=== PATIENT | female | born 1960 | race Caucasian/White ===

== ENCOUNTER 2019-12-17 13:04 | Outpatient (CLI) | payer MEDICARE, MEDICAID, SELFPAY ==
[2019-12-17 13:21] LABS: Basophils Percent Auto 0.4 % (0.2-1.2); Eosinophils Absolute Auto 0.1 K/mm3 (0-0.3); Hematocrit 48.9 % (37.0-47.0); Hemoglobin 16.1 g/dL (12.0-15.0); Immature Granulocyte Absolute 0.01 K/mm3 (0.00-0.031); Immature Granulocyte Percent A 0.2 % (0-0.5); Lymphocytes Absolute Auto 0.53 K/mm3 (0.9-3.2); Lymphocytes Percent Auto 9.4 % (18.3-44.2); Mean Corpuscular HGB Conc 32.9 g/dl (32-36); Mean Corpuscular Hemoglobin 32.7 pg (26-34); Mean Corpuscular Volume 99.4 fl (80-100); Monocytes Absolute Auto 0.4 K/mm3 (0.1-0.6); Monocytes Percent Auto 7.1 % (2.6-8.5); Neutrophils Absolute Auto 4.6 K/mm3 (1.3-6.7); Neutrophils Percent Auto 80.9 % (45.5-73.1); Platelet Count Result 195 k/mm3 (150-375); Red Blood Count 4.92 M/mm3 (4.2-5.4); Red Cell Distribution Width 13.4 % (11.5-14.5); White Blood Count 5.6 K/mm3 (4.5-10.0)
[2019-12-17 13:25] LABS: Blood Urea Nitrogen 16 mg/dL (8-26); Carbon Dioxide 29 mmol/L (22-30); Chloride 105 mmol/L (98-109); Estimated Glomerular Filt Rate > 60; Glucose 91 mg/dL (70-105); Potassium 4.2 mmol/L (3.5-4.9); Sodium 140 mmol/L (138-146)
[2019-12-17 16:46] LABS: Alanine Aminotransferase 15 U/L (4-35); Alkaline Phosphatase 100 U/L (38-126); Aspartate Amino Transferase 23 U/L (14-36); Bilirubin,Total 0.4 mg/dL (0.2-1.3); Blood Urea Nitrogen 16 mg/dL (7-17); Calcium 9.2 mg/dL (8.4-10.2); Carbon Dioxide 26 mmol/L (22-30); Chloride 105 mmol/L (98-107); Cholesterol 183 mg/dL (0-200); Estimated Glomerular Filt Rate > 60; Glucose 92 mg/dL (65-105); HDL Direct 61 mg/dL; Potassium 4.3 mmol/L (3.4-5.0); Sodium 138 mmol/L (137-145); Triglycerides 104 mg/dL (<150)
[2019-12-17 16:58] LABS: LDL Cholesterol Direct 101 mg/dL
[2019-12-17 17:02] LABS: Free T4 Free Thyroxine 0.79 ng/mL (0.78-2.19)
[2019-12-17 17:17] LABS: Total Triiodothyronine (T3) 1.25 NG/ML (0.97-1.69)
== END 2019-12-17 13:05 | disposition home or self-care (01) ==
LOC: ANHLAB 13:09
PROVIDERS: PCP Nurse Practitioner; Referring Provider Family Medicine; Visit Provider Internal Medicine Hematology & Oncology
DX: C21.0 Malignant neoplasm of anus, unspecified (principal); E03.9 Hypothyroidism, unspecified
CPT/HCPCS: 36415; 80048; 80053; 80061; 84439; 84443; 84480; 85025

== ENCOUNTER 2020-04-13 15:10 | Emergency (ER) | payer MEDICARE, MEDICAID, SELFPAY ==
[2020-04-13] VITALS (18 sets, daily range): BP systolic 95–134; BP diastolic 58–86; PULSE 60–86; RESP 13–21; TEMP 36.7; O2SAT 97–100
--- NOTE | ~2020-04-13 | CT_ITS ---
EXAMINATION: CT abdomen pelvis w con DATE: 04/13/2020 17:01 INDICATION: Rectal bleeding. History of anal cancer. TECHNIQUE: Computed tomography (CT) of the abdomen and pelvis was performed with 100 cc Omnipaque 350 intravenous contrast. The dose-length product was 228.72 mGy-cm. Automated exposure control and iter ative reconstruction technique were employed. COMPARISON: CT dated 08/13/2019 FINDINGS: Lung bases are unremarkable. No significant pleural or pericardial effusion. Heart size is normal. There are at least 6 hemangiomas in the liver. No new liver masses are identified. The spleen , pancreas, adrenal glands and left kidney are unremarkable. There is a 2.4 cm left renal mass that a ppears slightly larger than on prior examination, suspicious for enlargement of renal cell carcinoma. Gallbladder is present. Large calcified uterine fibroid. There is thickening of the rectum/anus. No obstruction. No free air or free fluid. No sclerotic or lytic lesions are seen. IMPRESSION: 1. Thickening of the rectum/anus, suspicious for residual/recurrent malignancy. 2: Enlarging solid 2.4 cm left renal mass, suspicious for renal cell carcinoma until proven otherwise . Reviewed, dictated and finalized at location A. IMPRESSION: 1. Thickening of the rectum/anus, suspicious for residual/recurrent malignancy. 2: Enlarging solid 2.4 cm left renal mass, suspicious for renal cell carcinoma until proven otherwise.
[2020-04-13 16:15] LABS: Basophils Percent Auto 0.2 % (0.2-1.2); Eosinophils Absolute Auto 0.1 K/mm3 (0-0.3); Eosinophils Percent Auto 1.4 % (0-4.4); Hematocrit 40.9 % (37.0-47.0); Immature Granulocyte Absolute 0.01 K/mm3 (0.00-0.031); Immature Granulocyte Percent A 0.2 % (0-0.5); Lymphocytes Absolute Auto 0.59 K/mm3 (0.9-3.2); Lymphocytes Percent Auto 13.5 % (18.3-44.2); Mean Corpuscular HGB Conc 34.2 g/dl (32-36); Mean Corpuscular Hemoglobin 32.9 pg (26-34); Mean Corpuscular Volume 96.2 fl (80-100); Mean Platelet Volume 8.4 fl (7.4-10.4); Monocytes Absolute Auto 0.3 K/mm3 (0.1-0.6); Monocytes Percent Auto 7.8 % (2.6-8.5); Neutrophils Absolute Auto 3.4 K/mm3 (1.3-6.7); Neutrophils Percent Auto 76.9 % (45.5-73.1); Platelet Count Result 192 k/mm3 (150-375); Red Blood Count 4.25 M/mm3 (4.2-5.4); Red Cell Distribution Width 13.8 % (11.5-14.5); White Blood Count 4.4 K/mm3 (4.5-10.0)
--- NOTE | 2020-04-13 16:17 | ED.GIBLEED ---
HPI - GI Bleed General Chief complaint: GI Bleed Stated complaint: rectal bleeding Time Seen by Provider: 04/13/20 16:09 History of Present Illness HPI Narrative: Patient presents with a very good friend for rectal bleeding today. Last year she had anal cancer had a surgical resection, and then chemotherapy and radiation therapy. She is finished with all these therapies. According to Dr. Allen's note, she is due for an anoscopy, but she was not aware of that. She has abdominal pain mid right abdomen, 7 out of 10. She has discomfort in the anal area but not a pain with a number. She sometimes has difficulty passing her stool. The blood she seen today is in her diaper. She said her anus is still healing. She has not had nausea or vomiting. She makes good urine, but her appetite is poor and she sometimes does not eat. She smokes cigarettes, but does not drink alcohol. He said she would not be able to stay overnight because [place] in [place] bad area and people will break into her house. Onset (ago): hour(s) Pain Consistency: constant Severity: moderate Relieving factors: none Exacerbating factors: bowel movement Associated symptoms: abdominal pain Related Data Home Medications Medication Instructions Recorded Confirmed gabapentin 800 mg tablet 800 mg PO DAILY 09/17/19 albuterol sulfate 90 inh INHALATION Q4-6H PRN 04/13/20 aspirin 81 mg PO DAILY 04/13/20 levothyroxine [Euthyrox] 75 mcg PO QAM 04/13/20 pramipexole [Mirapex] 0.125 mg PO QPM 04/13/20 Allergies Allergy/AdvReac Type Severity Reaction Status Date / Time codeine Allergy Unknown Depression Verified 09/19/19 10:48 poison allyson extract Allergy Unknown RASH Verified 09/19/19 10:48 SWELLING BEES Allergy Unknown SWELLING, Uncoded 09/19/19 10:48 PASS OUT Review of Systems Review of Systems: Narrative: CONSTITUTIONAL: Denies fever, chills, or sweats. EYES: Denies visual changes, redness, or discharge. ENT: Denies rhinorrhea, congestion, sore throat, or otalgia. CARDIOVASCULAR: Denies chest pain, palpitations, or edema. RESPIRATORY: She has occasional cough, but not dyspnea. GASTROINTESTINAL: She has abdominal pain, but not nausea, vomiting, or diarrhea. GENITOURINARY: Denies dysuria or hematuria. SKIN: Denies rash or itching. MUSCULOSKELETAL: Denies back pain, joint pain, or myalgia. NEUROLOGIC: Denies headache, numbness, or weakness. All systems reviewed & are unremarkable except as noted in HPI and below PMFSH Past Medical History Medical History Anal squamous cell carcinoma Asthma COPD (chronic obstructive pulmonary disease) Surgical History Surgical History History of appendectomy 1969 History of umbilical hernia repair with mesh in 1989 Social History Social History Smoking status: Current every day smoker Second hand tobacco smoke exposure: Yes Alcohol intake: never Exam Narrative: Exam Narrative: GENERAL: Well-appearing, well-nourished, and in no acute distress. Short hair, tanned skin. HEAD: Normocephalic, atraumatic. EYES: PERRLA and EOMI. ENT: Nares clear, no rhinorrhea or epistaxis. Mucous membranes moist. NECK: Supple. CHEST: Rhonchi on the left lung that clears after deep breathes. no respiratory distress. HEART: Regular rate and rhythm. No murmur heard. Normal peripheral pulses. ABDOMEN: Soft, nontender, nondistended, normal active bowel sounds. EXTREMITIES: Normal range of motion. No edema. SKIN: Warm, dry, no rash. NEURO: No focal deficits. Alert and oriented x3. PSYCH: Normal mood and affect. Course Consultations Consultation #1: Call Dr. Garsia for hospitalist admission, and he said talk to Dr. Park first. Time: 19:23 Consultation #2: Call Dr. Park is the partner for Dr. Allen, and he said they do not have a colorectal surgeon here that she needs to be
[2020-04-13 16:24] LABS: Prothrombin Time 12.9 Seconds (11.1-14.7)
[2020-04-13 16:25] LABS: Partial Thromboplastin Time 25.6 SECONDS (22.3-36.8)
[2020-04-13] MEDS: SODIUM CHLORIDE 0.9% IV 1,000 ML 999 ML IV CONT (16:25)
[2020-04-13 16:27] LABS: Alanine Aminotransferase 18 U/L (4-35); Albumin Level 3.9 g/dL (3.5-5.1); Alkaline Phosphatase 89 U/L (38-126); Aspartate Amino Transferase 32 U/L (14-36); Bilirubin,Total 0.3 mg/dL (0.2-1.3); Blood Urea Nitrogen 19 mg/dL (7-17); Calcium 8.9 mg/dL (8.4-10.2); Carbon Dioxide 25 mmol/L (22-30); Chloride 107 mmol/L (98-107); Estimated CRCL calculation 62 ml/min; Estimated Glomerular Filt Rate > 60; Glucose 97 mg/dL (65-105); Potassium 3.7 mmol/L (3.4-5.0); Sodium 139 mmol/L (137-145)
== END 2020-04-13 19:34 | disposition home or self-care (01) ==
PROVIDERS: Emergency Provider Emergency Medicine; PCP Nurse Practitioner
DX: K62.5 Hemorrhage of anus and rectum (principal); C20 Malignant neoplasm of rectum; N28.89 Other specified disorders of kidney and ureter; J44.9 Chronic obstructive pulmonary disease, unspecified; Z92.21 Personal history of antineoplastic chemotherapy; Z92.3 Personal history of irradiation; F17.210 Nicotine dependence, cigarettes, uncomplicated
CPT/HCPCS: 36415; 74177; 80053; 85025; 85610; 85730; 86850; 86900; 86901; 96360; 99284; J7030; Q9967

== ENCOUNTER 2020-04-16 10:03 | Outpatient (CLI) | payer MEDICARE, MEDICAID, SELFPAY ==
[2020-04-16 10:24] LABS: Basophils Percent Auto 0.2 % (0.2-1.2); Eosinophils Absolute Auto 0.1 K/mm3 (0-0.3); Eosinophils Percent Auto 2.3 % (0-4.4); Hematocrit 44.1 % (37.0-47.0); Hemoglobin 14.7 g/dL (12.0-15.0); Immature Granulocyte Absolute 0.02 K/mm3 (0.00-0.031); Immature Granulocyte Percent A 0.3 % (0-0.5); Lymphocytes Absolute Auto 0.67 K/mm3 (0.9-3.2); Lymphocytes Percent Auto 11.1 % (18.3-44.2); Mean Corpuscular HGB Conc 33.3 g/dl (32-36); Mean Corpuscular Hemoglobin 32.5 pg (26-34); Mean Corpuscular Volume 97.6 fl (80-100); Mean Platelet Volume 8.2 fl (7.4-10.4); Monocytes Absolute Auto 0.6 K/mm3 (0.1-0.6); Monocytes Percent Auto 9.2 % (2.6-8.5); Neutrophils Absolute Auto 4.7 K/mm3 (1.3-6.7); Neutrophils Percent Auto 76.9 % (45.5-73.1); Platelet Count Result 212 k/mm3 (150-375); Red Blood Count 4.52 M/mm3 (4.2-5.4); Red Cell Distribution Width 13.7 % (11.5-14.5); White Blood Count 6.1 K/mm3 (4.5-10.0)
[2020-04-16 12:29] LABS: Alanine Aminotransferase 17 U/L (4-35); Albumin Level 3.8 g/dL (3.5-5.1); Alkaline Phosphatase 98 U/L (38-126); Aspartate Amino Transferase 24 U/L (14-36); Bilirubin,Total 0.4 mg/dL (0.2-1.3); Blood Urea Nitrogen 15 mg/dL (7-17); Carbon Dioxide 27 mmol/L (22-30); Chloride 107 mmol/L (98-107); Estimated Glomerular Filt Rate > 60; Glucose 94 mg/dL (65-105); Potassium 3.9 mmol/L (3.4-5.0); Sodium 139 mmol/L (137-145)
== END 2020-04-16 10:04 | disposition home or self-care (01) ==
PROVIDERS: PCP Nurse Practitioner; Visit Provider Internal Medicine Hematology & Oncology
DX: C21.0 Malignant neoplasm of anus, unspecified (principal)
CPT/HCPCS: 36415; 80053; 85025

== ENCOUNTER 2020-04-27 10:31 | Outpatient (CLI) | payer MEDICARE, MEDICAID, SELFPAY ==
--- NOTE | ~2020-04-27 | PE_ITS ---
EXAMINATION: PET skull to mid thigh DATE: 04/27/2020 13:22 INDICATION: Malignant neoplasm of the anus TECHNIQUE: Blood glucose level was 100 mg/dL. 10.054 mCi of 18-fluorodeoxyglucose (18-FDG) was admini stered i.v. Low dose computed tomography (CT) images were acquired from the base of the brain to the proximal thighs for attenuation correction and anatomic localization. Positron emission tomography (P ET) images were acquired in the same distribution beginning 73 minutes after injection. The dose-vladimir th product (DLP) was 236.72 mGy-cm. COMPARISON: 11/05/2018, 04/13/2020 FINDINGS: Head/neck: FDG uptake is again seen in the thyroid without suspicious CT correlate. Otherwise, no marlen picious FDG uptake is identified. Chest: There is mild emphysema. The lungs are free of acute opacities. There is no pleural effusion o r pneumothorax. No pathologically enlarged thoracic lymph nodes are identified. The heart size is nor mal. No abnormal FDG uptake is identified. Abdomen/pelvis/proximal thighs: There is apparent asymmetric wall thickening of the rectum to the lef t of midline which extends to the anus demonstrates an SUV max of 20.1. No pathologically enlarged ab dominal or pelvic lymph nodes are identified. The liver, spleen, pancreas, gallbladder, and adrenal g lands are normal. The left kidney is unremarkable. Again noted is a 2.1 cm right kidney mass with alva ging features on multiple comparison CTs consistent with renal cell carcinoma. There is calcified ath erosclerosis of the aorta and many of the other arteries. There is no free intraperitoneal gas or tiarra dence of bowel obstruction. Calcified fibroid is noted in the ureters. Musculoskeletal: No abnormal FDG uptake is identified. IMPRESSION: 1. Apparent wall thickening of the rectum and anus with associated FDG uptake concerning for malignan cy. Although physiologic uptake in the bowel is often present, the degree of FDG uptake exceeds what would be expected and what is seen in the remainder of the bowel for this patient. Recommend direct v isualization. 2. Persistent uptake in the thyroid without suspicious CT correlate, possibly thyroiditis. 3. Right kidney mass, consistent with renal cell carcinoma Reviewed, dictated and finalized at location A. IMPRESSION: 1. Apparent wall thickening of the rectum and anus with associated FDG uptake c oncerning for malignancy. Although physiologic uptake in the bowel is often pre sent, the degree of FDG uptake exceeds what would be expected and what is seen in the remainder of the bowel for this patient. Recommend direct visualization. 2. Persistent uptake in the thyroid without suspicious CT correlate, possibly t hyroiditis. 3. Right kidney mass, consistent with renal cell carcinoma
[2020-04-27 11:03] LABS: Glucose Point of Care 100 (65-105)
== END 2020-04-27 10:32 | disposition home or self-care (01) ==
LOC: ANHIMG 10:39
PROVIDERS: PCP Nurse Practitioner; Visit Provider Internal Medicine Hematology & Oncology
DX: C21.1 Malignant neoplasm of anal canal (principal)
CPT/HCPCS: 78815; A9552

== ENCOUNTER 2020-06-22 13:46 | Outpatient (CLI) | payer MEDICARE, MEDICAID, SELFPAY ==
[2020-06-22 14:06] LABS: Basophils Percent Auto 0.4 % (0.2-1.2); Eosinophils Absolute Auto 0.1 K/mm3 (0-0.3); Eosinophils Percent Auto 0.7 % (0-4.4); Hematocrit 46.7 % (37.0-47.0); Hemoglobin 15.4 g/dL (12.0-15.0); Immature Granulocyte Absolute 0.02 K/mm3 (0.00-0.031); Immature Granulocyte Percent A 0.3 % (0-0.5); Lymphocytes Percent Auto 7.9 % (18.3-44.2); Mean Corpuscular Volume 97.1 fl (80-100); Monocytes Absolute Auto 0.4 K/mm3 (0.1-0.6); Monocytes Percent Auto 5.2 % (2.6-8.5); Neutrophils Absolute Auto 6.5 K/mm3 (1.3-6.7); Neutrophils Percent Auto 85.5 % (45.5-73.1); Platelet Count Result 228 k/mm3 (150-375); Red Blood Count 4.81 M/mm3 (4.2-5.4); Red Cell Distribution Width 13.2 % (11.5-14.5); White Blood Count 7.6 K/mm3 (4.5-10.0)
[2020-06-22 14:10] LABS: Blood Urea Nitrogen 12 mg/dL (8-26); Carbon Dioxide 25 mmol/L (22-30); Chloride 104 mmol/L (98-109); Estimated Glomerular Filt Rate > 60; Glucose 106 mg/dL (70-105); Potassium 3.9 mmol/L (3.5-4.9); Sodium 141 mmol/L (138-146)
[2020-06-22 16:47] LABS: Alanine Aminotransferase 16 U/L (4-35); Albumin Level 4.1 g/dL (3.5-5.1); Alkaline Phosphatase 117 U/L (38-126); Anion Gap 8 mmol/L (8-16); Aspartate Amino Transferase 27 U/L (14-36); Bilirubin,Total 0.5 mg/dL (0.2-1.3); Blood Urea Nitrogen 13 mg/dL (7-17); Calcium 9.3 mg/dL (8.4-10.2); Carbon Dioxide 26 mmol/L (22-30); Chloride 104 mmol/L (98-107); Estimated Glomerular Filt Rate > 60; Glucose 110 mg/dL (65-105); Sodium 138 mmol/L (137-145)
== END 2020-06-22 13:47 | disposition home or self-care (01) ==
LOC: ANHLAB 13:49
PROVIDERS: PCP Nurse Practitioner; Visit Provider Internal Medicine Hematology & Oncology
DX: C21.0 Malignant neoplasm of anus, unspecified (principal)
CPT/HCPCS: 36415; 80048; 80053; 85025

== ENCOUNTER 2020-08-20 09:14 | Outpatient (CLI) | payer MEDICARE, MEDICAID, SELFPAY ==
--- NOTE | ~2020-08-20 | CT_ITS ---
EXAMINATION: CT abdomen pelvis w con DATE: 08/20/2020 09:51 INDICATION: Abdominal infection. TECHNIQUE: Computed tomography (CT) of the abdomen and pelvis was performed with 100 mL Omnipaque 350 intravenous contrast. Automated exposure control and iterative reconstruction technique were employe d. The dose-length product was 177.63 mGy-cm. COMPARISON: CT abdomen and pelvis 04/13/2020, 10/24/18, PET/CT 04/27/20, 11/05/18 FINDINGS: The visualized portions of the lung bases demonstrate minimal atelectasis on the left. No p leural effusion. The heart size is normal. No pericardial effusion. There are multiple masses in the liver measuring up to 2.4 cm without change from 10/24/2018 and without increased activity on prior PE T, likely benign. Some of the masses demonstrate peripheral nodular hyperenhancement, consistent with hemangiomas. The gallbladder, spleen, pancreas, and adrenal glands are normal. There is cortical thi nning of the kidneys. There is a 1.9 cm enhancing mass at the medial aspect of the right kidney. Ther e is a left internal ureteral stent in expected position. The bladder is decompressed by a Breaux cath eter. There are calcified fibroids in the uterus. There are no dilated loops of bowel. There is an en d colostomy in left abdomen. There are no pathologically enlarged lymph nodes. The ovarian veins and periuterine veins are enlarged, consistent with pelvic venous insufficiency. There is fluid and gas i n the perirectal and perianal region in the area of prior surgery. The fluid component measures up to 6.6 x 2.0 x 1.5 cm in the perianal region. The fluid is contiguous with the skin in the perianal reg ion. There is mild lumbar spondylosis. IMPRESSION: 1. Fluid and gas in the perirectal and perianal region in the area of prior surgery with largest flui d component measuring 6.6 x 2.0 x 1.5 cm with skin communication. 2. Stable 1.9 cm enhancing right kidney mass, consistent with renal cell carcinoma. Reviewed, dictated and finalized at location A. [employer] IMPRESSION: 1. Fluid and gas in the perirectal and perianal region in the area of prior brando moriah with largest fluid component measuring 6.6 x 2.0 x 1.5 cm with skin commun ication. 2. Stable 1.9 cm enhancing right kidney mass, consistent with renal cell carcin mel.
== END 2020-08-20 09:15 | disposition home or self-care (01) ==
LOC: ANHIMG 09:24
PROVIDERS: PCP Nurse Practitioner
DX: K65.9 Peritonitis, unspecified (principal)
CPT/HCPCS: 74177; Q9967

== ENCOUNTER 2020-09-06 13:00 | Outpatient (CLI) | payer MEDICARE, MEDICAID, SELFPAY ==
[2020-09-06 13:17] LABS: Hematocrit 42.8 % (37.0-47.0); Hemoglobin 13.7 g/dL (12.0-15.0); Mean Corpuscular Hemoglobin 31.2 pg (26-34); Mean Corpuscular Volume 97.5 fl (80-100); Mean Platelet Volume 8.2 fl (7.4-10.4); Platelet Count Result 223 k/mm3 (150-375); Red Blood Count 4.39 M/mm3 (4.2-5.4); Red Cell Distribution Width 17.3 % (11.5-14.5); White Blood Count 4.4 K/mm3 (4.5-10.0)
[2020-09-06 13:22] LABS: Blood Urea Nitrogen 13 mg/dL (8-26); Carbon Dioxide 31 mmol/L (22-30); Chloride 102 mmol/L (98-109); Estimated Glomerular Filt Rate > 60; Glucose 115 mg/dL (70-105); Potassium 4.1 mmol/L (3.5-4.9); Sodium 138 mmol/L (138-146)
[2020-09-06 17:35] LABS: Alanine Aminotransferase 11 U/L (4-35); Albumin Level 3.7 g/dL (3.5-5.1); Alkaline Phosphatase 114 U/L (38-126); Anion Gap 6 mmol/L (8-16); Aspartate Amino Transferase 25 U/L (14-36); Bilirubin,Total 0.3 mg/dL (0.2-1.3); Blood Urea Nitrogen 14 mg/dL (7-17); Calcium 9.4 mg/dL (8.4-10.2); Carbon Dioxide 30 mmol/L (22-30); Chloride 103 mmol/L (98-107); Estimated Glomerular Filt Rate > 60; Glucose 122 mg/dL (65-105); Potassium 4.2 mmol/L (3.4-5.0); Sodium 139 mmol/L (137-145)
== END 2020-09-06 13:01 | disposition home or self-care (01) ==
LOC: ANHLAB 13:02
PROVIDERS: PCP Nurse Practitioner; Visit Provider Internal Medicine Hematology & Oncology
DX: C21.0 Malignant neoplasm of anus, unspecified (principal)
CPT/HCPCS: 36415; 80048; 80053; 85027

== ENCOUNTER 2020-10-30 14:16 | Emergency (ER) | payer MEDICARE, MEDICAID, SELFPAY ==
[2020-10-30 14:20] VITALS: BP 127/82; PULSE 77; RESP 16; TEMP 36.7; O2SAT 98
--- NOTE | 2020-10-30 15:26 | ED.GENADULT ---
HPI - General Adult General Chief complaint: Recheck/Abnormal Lab/Rx Stated complaint: PRESCRIPTION REFILL Time Seen by Provider: 10/30/20 14:20 Source: patient Mode of arrival: ambulatory Limitations: no limitations History of Present Illness HPI narrative: Patient is a 60-year-old female who presents with request of having her pain medication refilled has history of anal cancer currently managed by orthopedic surgery patient has pelvic pain associated with the cancer which is unchanged patient denies recent illness or other complaints and on arrival is in the room in no distress Related Data Home Medications Medication Instructions Recorded Confirmed gabapentin 800 mg tablet 800 mg PO DAILY 09/17/19 09/24/20 albuterol sulfate 90 inh INHALATION Q4-6H PRN 04/13/20 09/24/20 aspirin 81 mg PO DAILY 04/13/20 09/24/20 levothyroxine [Euthyrox] 75 mcg PO QAM 04/13/20 09/24/20 pramipexole [Mirapex] 0.125 mg PO QPM 04/13/20 09/24/20 Allergies Allergy/AdvReac Type Severity Reaction Status Date / Time codeine Allergy Unknown Depression Verified 09/24/20 14:00 poison allyson extract Allergy Unknown RASH Verified 09/24/20 14:00 SWELLING BEES Allergy Unknown SWELLING, Uncoded 09/24/20 14:00 PASS OUT Review of Systems Review of Systems: All systems reviewed & are unremarkable except as noted in HPI and below PMFSH Past Medical History Medical History (Updated 10/30/20 @ 15:32 by Uriel Castano PA-C) Anal squamous cell carcinoma Asthma COPD (chronic obstructive pulmonary disease) Surgical History Surgical History History of appendectomy 1970 History of umbilical hernia repair with mesh in 1989 Family History Family History Father Hypertension Mother Family history of malignant neoplasm Sibling Family history of diabetes mellitus in first degree relative Family history of heart disease in male family member before age 55 Other Diabetes mellitus Family history of allergic disorder Family history of arthritis Social History Social History Smoking status: Current every day smoker Second hand tobacco smoke exposure: Yes Alcohol intake: never Exam Narrative: Exam Narrative: GENERAL: Well-appearing, well-nourished, and in no acute distress. HEAD: Normocephalic, atraumatic. EYES: PERRLA and EOMI. ENT: Nares clear, no rhinorrhea or epistaxis. Mucous membranes moist. CHEST: Clear to auscultation. No respiratory distress. No wheezes rales or rhonchi HEART: Regular rate and rhythm. No murmur heard. EXTREMITIES: Normal range of motion. No edema. SKIN: Warm, dry, no rash. NEURO: No focal deficits. Alert and oriented x3. PSYCH: Normal mood and affect. Course Course Emergency Course: Patient will be given some pain medications and advised to follow with primary care and oncology no other concerning findings or complaints Vital Signs Vital signs: Vital Signs Temperature 98.1 F 10/30/20 14:20 Pulse Rate 77 10/30/20 14:20 Respiratory Rate 16 10/30/20 14:20 Blood Pressure 127/82 10/30/20 14:20 Pulse Oximetry 98 10/30/20 14:20 Temperature 98.1 F 10/30/20 14:20 Pulse Rate 77 10/30/20 14:20 Respiratory Rate 16 10/30/20 14:20 Blood Pressure 127/82 10/30/20 14:20 Pulse Oximetry 98 10/30/20 14:20 Medical Decision Making MDM Narrative Medical decision making narrative: Patient with pain related to her cancer will be given medication short course advised to follow with oncology on Sunday Vital Signs Vital Signs: Vital Signs Temperature 98.1 F 10/30/20 14:20 Pulse Rate 77 10/30/20 14:20 Respiratory Rate 16 10/30/20 14:20 Blood Pressure 127/82 10/30/20 14:20 Pulse Oximetry 98 10/30/20 14:20 Temperature 98.1 F 10/30/20 14:20 Pulse Rate 77 10/30/20 14:20 Respirator
== END 2020-10-30 15:42 | disposition home or self-care (01) ==
PROVIDERS: Emergency Provider Family Medicine; PCP Family Medicine
DX: C21.0 Malignant neoplasm of anus, unspecified (principal); J44.9 Chronic obstructive pulmonary disease, unspecified; Z79.82 Long term (current) use of aspirin; F17.200 Nicotine dependence, unspecified, uncomplicated
CPT/HCPCS: 99281

== ENCOUNTER 2020-12-08 13:05 | Outpatient (CLI) | payer MEDICARE, MEDICAID, SELFPAY ==
[2020-12-08 13:32] LABS: Basophils Percent Auto 0.5 % (0.2-1.2); Eosinophils Percent Auto 0.5 % (0-4.4); Hematocrit 46.4 % (37.0-47.0); Hemoglobin 15.8 g/dL (12.0-15.0); Immature Granulocyte Absolute 0.01 K/mm3 (0.00-0.031); Immature Granulocyte Percent A 0.2 % (0-0.5); Lymphocytes Absolute Auto 0.88 K/mm3 (0.9-3.2); Lymphocytes Percent Auto 21.6 % (18.3-44.2); Mean Corpuscular HGB Conc 34.1 g/dl (32-36); Mean Corpuscular Hemoglobin 32.8 pg (26-34); Mean Corpuscular Volume 96.5 fl (80-100); Mean Platelet Volume 8.6 fl (7.4-10.4); Monocytes Absolute Auto 0.4 K/mm3 (0.1-0.6); Monocytes Percent Auto 9.1 % (2.6-8.5); Neutrophils Absolute Auto 2.8 K/mm3 (1.3-6.7); Neutrophils Percent Auto 68.1 % (45.5-73.1); Platelet Count Result 124 k/mm3 (150-375); Red Blood Count 4.81 M/mm3 (4.2-5.4); Red Cell Distribution Width 14.7 % (11.5-14.5); White Blood Count 4.1 K/mm3 (4.5-10.0)
[2020-12-08 13:36] LABS: Blood Urea Nitrogen 15 mg/dL (8-26); Carbon Dioxide 25 mmol/L (22-30); Chloride 106 mmol/L (98-109); Estimated Glomerular Filt Rate > 60; Glucose 100 mg/dL (70-105); Potassium 3.8 mmol/L (3.5-4.9); Sodium 139 mmol/L (138-146)
[2020-12-08 16:04] LABS: Alanine Aminotransferase 19 U/L (4-35); Albumin Level 4.4 g/dL (3.5-5.1); Alkaline Phosphatase 85 U/L (38-126); Anion Gap 8 mmol/L (8-16); Aspartate Amino Transferase 26 U/L (14-36); Bilirubin,Total 0.4 mg/dL (0.2-1.3); Blood Urea Nitrogen 17 mg/dL (7-17); Calcium 9.8 mg/dL (8.4-10.2); Carbon Dioxide 23 mmol/L (22-30); Chloride 108 mmol/L (98-107); Estimated Glomerular Filt Rate > 60; Glucose 101 mg/dL (65-105); Potassium 4.1 mmol/L (3.4-5.0); Sodium 139 mmol/L (137-145)
== END 2020-12-08 13:06 | disposition home or self-care (01) ==
LOC: ANHLAB 13:07
PROVIDERS: PCP Family Medicine; Visit Provider Internal Medicine Hematology & Oncology
DX: C21.0 Malignant neoplasm of anus, unspecified (principal)
CPT/HCPCS: 36415; 80048; 80053; 85025

== ENCOUNTER 2020-12-29 08:50 | Outpatient (CLI) | payer MEDICARE, MEDICAID, SELFPAY ==
[2020-12-29 10:25] LABS: Free T4 Free Thyroxine 0.62 ng/mL (0.78-2.19)
[2020-12-29 10:37] LABS: Total Triiodothyronine (T3) 0.68 NG/ML (0.97-1.69)
== END 2020-12-29 08:51 | disposition home or self-care (01) ==
LOC: ANHLAB 08:52
PROVIDERS: Visit Provider Nurse Practitioner
DX: E03.9 Hypothyroidism, unspecified (principal)
CPT/HCPCS: 36415; 84439; 84443; 84480

== ENCOUNTER 2021-04-26 09:26 | Outpatient (CLI) | payer MEDICARE, MEDICAID, SELFPAY ==
--- NOTE | ~2021-04-26 | CT_ITS ---
EXAMINATION: CT abdomen pelvis w con DATE: 04/26/2021 10:02 INDICATION: Anal cancer TECHNIQUE: Computed tomography (CT) of the abdomen and pelvis was performed with 100 cc Omnipaque 350 intravenous contrast. Automated exposure control and iterative reconstruction technique were employe d. Exam dose: 182.84 mGy-cm total exam DLP. COMPARISON: 08/20/2020 CT abdomen pelvis 04/27/2020 PET/CT scan FINDINGS: The lung bases are clear of infiltrate or consolidation. Normal heart size. No pericardial or pleural effusion. There are multiple stable previously reported FDG negative up to approximately 2.4 cm hypoattenuating lesions of the liver, including some with peripheral pulling of contrast material, likely benign hep atic hemangiomas. The gallbladder is present. No bile duct or pancreatic duct dilatation or pancreatic mass lesion or c alcification. Normal splenic size. The adrenal glands appear unremarkable. Persistent approximately 2 cm right renal hypoenhancing mass, most consistent with hypernephroma. The kidneys are otherwise unremarkable. Normal caliber of the abdominal aorta. No aortocaval or periaortic or pelvic lymphadenopathy is appre ciated. No ascites. Multiple uterine calcifications including an approximately 4 cm calcified uterine fibroid. The urinar y bladder is unremarkable. Left and colostomy. No bowel obstruction is evident. No suspicious osteolytic or osteoblastic lesions are noted. IMPRESSION: Stable probable hepatic hemangiomas 2 cm right renal hypoenhancing mass, most suggestive of hypernephroma Left colostomy; resolution of air-fluid collections in the perianal and perirectal region since 08/20 Reviewed, dictated and finalized at [facility]. Reviewed, dictated and finalized at location A. IMPRESSION: Stable probable hepatic hemangiomas 2 cm right renal hypoenhancing mass, most suggestive of hypernephroma Left colostomy; resolution of air-fluid collections in the perianal and perirec sly region since 08/20/2020
[2021-04-26 09:53] LABS: Estimated Glomerular Filt Rate > 60
== END 2021-04-26 09:27 | disposition home or self-care (01) ==
LOC: ANHIMG 09:32
PROVIDERS: PCP Family Medicine; Visit Provider Internal Medicine Hematology & Oncology
DX: C21.0 Malignant neoplasm of anus, unspecified (principal)
CPT/HCPCS: 74177; Q9967

== ENCOUNTER 2021-05-03 15:49 | Outpatient (CLI) | payer MEDICARE, MEDICAID, SELFPAY ==
[2021-05-03 16:50] LABS: Free T4 Free Thyroxine 1.01 ng/mL (0.78-2.19)
[2021-05-03 17:09] LABS: Total Triiodothyronine (T3) 0.98 NG/ML (0.97-1.69)
== END 2021-05-03 15:50 | disposition home or self-care (01) ==
PROVIDERS: PCP Family Medicine; Visit Provider Family Medicine
DX: E03.9 Hypothyroidism, unspecified (principal)
CPT/HCPCS: 36415; 84439; 84443; 84480

== ENCOUNTER 2021-07-19 13:31 | Outpatient (CLI) | payer OTHER, SELFPAY ==
--- NOTE | ~2021-07-19 | CT_ITS ---
EXAMINATION: CT abdomen pelvis w con DATE: 07/19/2021 14:32 INDICATION: Anal cancer. TECHNIQUE: Computed tomography (CT) of the abdomen and pelvis was performed with 100 mL Omnipaque 350 intravenous contrast. Automated exposure control and iterative reconstruction technique were employe d. The dose-length product was 176.87 mGy-cm. COMPARISON: CT abdomen and pelvis 04/26/2021, 10/24/18, PET/CT 11/05/18 FINDINGS: The visualized portions of the lung bases demonstrate minimal atelectasis. No pleural effus ion. The heart size is normal. No pericardial effusion. There are 6 chronic masses in the liver witho ut increased activity on prior PET, likely benign. Some have interrupted peripheral puddling of contr ast, consistent with hemangiomas. The gallbladder, spleen, pancreas, and adrenal glands are normal. T here is cortical thinning of the kidneys. There is a 1 mm stone in right kidney. There is a 1.8 cm hy poenhancing mass in right kidney. There is a 1.5 cm enhancing mass in left kidney. There is a calcifi ed fibroid in the uterus. There are no dilated loops of bowel. There is an end colostomy in left abdo men. There are no pathologically enlarged lymph nodes. There is no free intraperitoneal fluid. There is mild lumbar spondylosis. IMPRESSION: 1. Stable bilateral enhancing kidney masses suspicious for renal cell carcinoma. Reviewed, dictated and finalized at location A. IMPRESSION: 1. Stable bilateral enhancing kidney masses suspicious for renal cell carcinoma .
[2021-07-19 14:14] LABS: Estimated Glomerular Filt Rate > 60
== END 2021-07-19 13:32 | disposition home or self-care (01) ==
LOC: ANHIMG 13:37
PROVIDERS: PCP Family Medicine; Visit Provider Internal Medicine Hematology & Oncology
DX: C21.0 Malignant neoplasm of anus, unspecified (principal); N20.0 Calculus of kidney; N28.89 Other specified disorders of kidney and ureter; M47.816 Spondylosis without myelopathy or radiculopathy, lumbar region
CPT/HCPCS: 74177; Q9967

== ENCOUNTER 2021-09-23 16:49 | Emergency (ER) | payer OTHER, SELFPAY ==
[2021-09-23 17:02] VITALS: BP 114/64; PULSE 97; RESP 16; TEMP 36.2; O2SAT 97
[2021-09-23 19:00] VITALS: BP 109/69; PULSE 110; RESP 14; O2SAT 100
--- NOTE | 2021-09-23 22:03 | PC.NURSE ---
1st call no answer
--- NOTE | 2021-09-23 22:24 | PC.NURSE ---
called 3x no answer
== END 2021-09-24 05:26 | disposition left against medical advice (07) ==
PROVIDERS: PCP Family Medicine
DX: N93.9 Abnormal uterine and vaginal bleeding, unspecified (principal)
CPT/HCPCS: 99199

== ENCOUNTER 2021-09-24 10:39 | Emergency (ER) | payer OTHER, SELFPAY ==
--- NOTE | ~2021-09-24 | CT_ITS ---
EXAMINATION: CT abdomen pelvis w con DATE: 09/24/2021 16:28 INDICATION: Vaginal bleeding TECHNIQUE: Computed tomography (CT) of the abdomen and pelvis was performed with 100 cc Omnipaque 350 intravenous contrast. The dose-length product was 202.46 mGy-cm. Automated exposure control and iter ative reconstruction technique were employed. COMPARISON: CT dated 07/19/2021. FINDINGS: Lung bases are unremarkable. Heart size normal. There is atherosclerosis of the aorta witho ut evidence for for aneurysm. There are several low-density lesions in the liver. There is subtle per ipheral nodular enhancement of the liver lesions. These are most likely hemangiomas. Gallbladder is p resent. The spleen, pancreas, adrenal glands and kidneys are unremarkable. Gallbladder is present. Th ere is a jejunostomy tube. Nonobstructive bowel gas pattern. There is a 2.1 x 1.8 x 1.3 cm enhancing right renal mass, consistent with renal cell carcinoma. There are prominent parametrial vessels, most likely pelvic congestion syndrome. Densely calcified uterine fibroids. No free air or free fluid. Th ere is levoscoliosis of the lumbar spine. No acute osseous abnormality no evidence for aortic aneurys m. No lymphadenopathy. IMPRESSION: 1. Stable 2.1 cm enhancing right renal mass, consistent with renal cell carcinoma. 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 Reviewed, dictated and finalized at location A. [employer] IMPRESSION: 1. Stable 2.1 cm enhancing right renal mass, consistent with renal cell carcino ma. 2: Multiple peripherally enhancing liver masses, most likely cavernous hemangi omas.
[2021-09-24 11:30] VITALS: BP 106/33; PULSE 114; RESP 17; TEMP 36.6; O2SAT 99
--- NOTE | 2021-09-24 14:59 | ED.GENADULT ---
HPI - General Adult General Chief complaint: Vaginal Bleeding Stated complaint: Vaginal Bleeding Time Seen by Provider: 09/24/21 14:38 History of Present Illness HPI narrative: 61-year-old female with history of colon cancer presents to the emergency department for evaluation of 1 week of lower abdominal pain and 2 days of vaginal bleeding and discharge. Patient did have colon cancer 2 years ago with chemotherapy/radiation and has had a colostomy bag for the past 2 years. Patient states that 1 week ago she began having some increased lower abdominal pain. Patient states 2 days ago she began having bloody and foul green discharge. Patient states she is not sexually active. Patient is postmenopausal. Patient did have tubal ligation but has not had an oophorectomy or hysterectomy. Related Data Home Medications Medication Instructions Recorded Confirmed gabapentin 800 mg tablet 800 mg PO DAILY 09/17/19 03/02/21 albuterol sulfate 90 inh INHALATION Q4-6H PRN 04/13/20 03/02/21 aspirin 81 mg PO DAILY 04/13/20 03/02/21 levothyroxine [Euthyrox] 75 mcg PO QAM 04/13/20 03/02/21 pramipexole [Mirapex] 0.125 mg PO QPM 04/13/20 03/02/21 cephalexin 500 mg PO Q8H 01/19/21 03/02/21 naloxone 4 mg INTRANASAL Q2-3M PRN 01/19/21 03/02/21 Allergies Allergy/AdvReac Type Severity Reaction Status Date / Time codeine Allergy Unknown Depression Verified 09/24/21 15:20 poison allyson extract Allergy Unknown RASH Verified 09/24/21 15:20 SWELLING BEES Allergy Unknown SWELLING, Uncoded 09/24/21 15:20 PASS OUT Review of Systems Review of Systems: CONSTITUTIONAL: Denies fever, chills, or sweats. EYES: Denies visual changes, redness, or discharge. ENT: Denies rhinorrhea, congestion, sore throat, or otalgia. CARDIOVASCULAR: Denies chest pain, palpitations, or edema. RESPIRATORY: Denies cough or dyspnea. GASTROINTESTINAL: Lower abdominal pain but denies any nausea vomiting or diarrhea GENITOURINARY: Denies any pain with urination but does have vaginal bleeding and vaginal discharge. SKIN: Denies rash or itching. MUSCULOSKELETAL: Denies back pain, joint pain, or myalgia. NEUROLOGIC: Denies headache, numbness, or weakness. PSYCHIATRIC: Denies anxiety or depression. [facility] Past Medical History Medical History (Updated 09/25/21 @ 00:00 by Kristi Morales) Anal squamous cell carcinoma Asthma COPD (chronic obstructive pulmonary disease) Surgical History Surgical History History of appendectomy 1970 History of umbilical hernia repair with mesh in 1989 Family History Family History Father Hypertension Mother Family history of malignant neoplasm Sibling Family history of diabetes mellitus in first degree relative Family history of heart disease in male family member before age 55 Other Diabetes mellitus Family history of allergic disorder Family history of arthritis Social History Social History Smoking packs per day: 1 Smoking cigarettes per day: 20.0 Smoking status: Current every day smoker Second hand tobacco smoke exposure: Yes Alcohol intake: never Gender identity (if verbalized by the patient): Female Spiritual care concerns: No Exam Narrative: APPEARANCE: Well appearing, no pain in distress, well-nourished. Head normocephalic atraumtaic. EYES: PERRLA/EOMI, conjunctivae very clear. NOSE: Normal no drainage EARS:TMS clear Marvin Vergara, with good light reflex. THROAT: Pharynx clear, no exudate. NECK: Supple. No adenopathy, no masses. RESPIRATORY: Airway patent, respirations nonlabored. Clear to auscultation bilaterally, no rales, rhonchi, wheezing. CARDIOVASCULAR: Regular rate and rhythm without murmurs rubs or gallops. ABDOMINAL: Soft, nondistended. Well-appearing colostomy. Some suprapubic tenderness to palpation MUSCULOSKELETAl: Moves all ext
[2021-09-24 15:15] VITALS: BP 113/70; PULSE 90; RESP 16; TEMP 36.8; O2SAT 99
[2021-09-24 15:47] LABS: Basophils Percent Auto 0.3 % (0.2-1.2); Eosinophils Percent Auto 0.3 % (0-4.4); Hematocrit 45.1 % (37.0-47.0); Hemoglobin 15.3 g/dL (12.0-15.0); Immature Granulocyte Absolute 0.02 K/mm3 (0.00-0.031); Immature Granulocyte Percent A 0.3 % (0-0.5); Lymphocytes Percent Auto 10.6 % (18.3-44.2); Mean Corpuscular HGB Conc 33.9 g/dl (32-36); Mean Corpuscular Volume 91.5 fl (80-100); Mean Platelet Volume 8.4 fl (7.4-10.4); Monocytes Absolute Auto 0.6 K/mm3 (0.1-0.6); Monocytes Percent Auto 7.8 % (2.6-8.5); Neutrophils Absolute Auto 6.1 K/mm3 (1.3-6.7); Neutrophils Percent Auto 80.7 % (45.5-73.1); Platelet Count Result 245 k/mm3 (150-375); Red Blood Count 4.93 M/mm3 (4.2-5.4); Red Cell Distribution Width 13.2 % (11.5-14.5); White Blood Count 7.6 K/mm3 (4.5-10.0)
[2021-09-24 15:59] LABS: Alanine Aminotransferase 29 U/L (4-35); Albumin Level 4.2 g/dL (3.5-5.1); Alkaline Phosphatase 234 U/L (38-126); Anion Gap 9 mmol/L (8-16); Aspartate Amino Transferase 34 U/L (14-36); Bilirubin,Total 0.4 mg/dL (0.2-1.3); Blood Urea Nitrogen 27 mg/dL (7-17); Calcium 9.7 mg/dL (8.4-10.2); Carbon Dioxide 25 mmol/L (22-30); Chloride 100 mmol/L (98-107); Estimated CRCL calculation 62 ml/min; Estimated Glomerular Filt Rate > 60; Glucose 90 mg/dL (65-110); Potassium 4.1 mmol/L (3.4-5.0); Sodium 134 mmol/L (137-145)
[2021-09-24 16:01] LABS: Prothrombin Time 12.7 Seconds (11.1-14.7)
--- NOTE | 2021-09-24 16:18 | PC.NURSE ---
Pt off floor to radiology.
[2021-09-24] MEDS: fentaNYL CITRATE INJ (*CRX) 100 MCG/2 ML VIAL 50 MCG IV PUSH (16:34)
[2021-09-24 18:36] LABS: Add Urine Microscopic? YES; Appearance Urine Clear (Clear); Bilirubin Urine Negative (Negative); Blood Urine 2+ (Negative); Color Urine Yellow (Yellow); Glucose Urine UA Negative (Negative); Ketones Urine 1+ mg/dL (Negative); Leukocyte Esterase Ur Trace LEU/UL (Negative); Mucus Urine Few /lpf; Nitrate Urine Negative (Negative); Protein Urine Negative (Negative); Squamous Epithelial Cell Urine Rare /hpf (Few); Urobilinogen Urine Negative mg/dL (<2.0)
[2021-09-24] MEDS: metroNIDAZOLE 250 MG TABLET 500 MG PO (19:30)
[2021-09-24 19:45] VITALS: BP 137/93; PULSE 91; RESP 16; O2SAT 100
== END 2021-09-24 19:50 | disposition home or self-care (01) ==
PROVIDERS: Emergency Provider Emergency Medicine; PCP Family Medicine
DX: N89.8 Other specified noninflammatory disorders of vagina (principal); J44.9 Chronic obstructive pulmonary disease, unspecified; F17.210 Nicotine dependence, cigarettes, uncomplicated; N28.89 Other specified disorders of kidney and ureter; R16.0 Hepatomegaly, not elsewhere classified; Z85.048 Personal history of other malignant neoplasm of rectum, rectosigmoid junction, and anus; Z93.3 Colostomy status; Z79.82 Long term (current) use of aspirin
CPT/HCPCS: 36415; 74177; 80053; 81001; 85025; 85610; 87070; 87491; 87591; 87808; 96374; 99284; A9270; J3010; Q9967

== ENCOUNTER 2022-05-10 12:43 | Emergency (ER) | payer MEDICARE, MEDICAID, SELFPAY ==
[2022-05-10] VITALS (9 sets, daily range): BP systolic 108–128; BP diastolic 75–88; PULSE 72–92; RESP 13–21; TEMP 36.5; O2SAT 96–100
--- NOTE | ~2022-05-10 | XR_ITS ---
EXAMINATION: XR chest 1V DATE: 05/10/2022 13:29 INDICATION: Slurred speech. Right arm numbness and weakness. TECHNIQUE: A single frontal view of the chest was obtained. COMPARISON: Chest 2 views 07/08/2014, CT abdomen and pelvis 09/24/2021 FINDINGS: There are airspace opacities in left lower lung zone. No pleural effusion or pneumothorax. The heart size is normal. There is a right internal jugular port with tip in superior vena cava. IMPRESSION: 1. Airspace opacities in left lower lung zone, consistent with atelectasis versus pneumonia. Reviewed, dictated and finalized at location A. IMPRESSION: 1. Airspace opacities in left lower lung zone, consistent with atelectasis vers us pneumonia.
--- NOTE | ~2022-05-10 | CT_ITS ---
EXAMINATION: CT brain wo con DATE: 05/10/2022 12:58 INDICATION: Cerebrovascular accident. Slurred speech. Right-sided numbness. TECHNIQUE: Computed tomography (CT) of the head was performed without intravenous contrast. The mA wa s adjusted according to patient size. Iterative reconstruction technique was employed. The dose-lengt h product was 605.33 mGy-cm. COMPARISON: None FINDINGS: There is no intracranial hemorrhage, acute infarction, or abnormal intracranial mass lesion . The ventricles are normal in size. The orbits are normal. There is mild mucosal thickening in the e thmoid sinuses. The mastoid air cells are normal. IMPRESSION: 1. Normal brain. I called this result to Dr. Ma. Reviewed, dictated and finalized at location A.
--- NOTE | 2022-05-10 12:51 | ECG_ITS ---
Measurements Intervals [place] Rate: 90 P: 82 MI: 142 QRS: 30 QRSD: 73 T: 65 QT: 330 QTc: 404 Interpretive Statements SINUS RHYTHM BASELINE ARTIFACT POSSIBLE RIGHT ATRIAL ENLARGEMENT BORDERLINE ECG COMPARED TO ECG 02/07/2019 14:12:30 NO SIGNIFICANT CHANGES Electronically Signed On 05-10-2022 13:10:20 CDT by Shilo Hartmann M.D.
[2022-05-10 12:52] LABS: Glucose Point of Care 135 mg/dl (65-105)
[2022-05-10 13:24] LABS: Basophils Percent Auto 0.4 % (0.2-1.2); Eosinophils Percent Auto 0.2 % (0-4.4); Hemoglobin 15.4 g/dL (12.0-15.0); Immature Granulocyte Absolute 0.03 K/mm3 (0.00-0.031); Immature Granulocyte Percent A 0.3 % (0-0.5); Lymphocytes Absolute Auto 0.94 K/mm3 (0.9-3.2); Lymphocytes Percent Auto 10.5 % (18.3-44.2); Mean Corpuscular HGB Conc 32.8 g/dl (32-36); Mean Corpuscular Hemoglobin 30.1 pg (26-34); Mean Platelet Volume 8.6 fl (7.4-10.4); Monocytes Absolute Auto 0.5 K/mm3 (0.1-0.6); Monocytes Percent Auto 5.6 % (2.6-8.5); Neutrophils Absolute Auto 7.4 K/mm3 (1.3-6.7); Platelet Count Result 124 k/mm3 (150-375); Red Blood Count 5.11 M/mm3 (4.2-5.4); Red Cell Distribution Width 15.8 % (11.5-14.5); White Blood Count 8.9 K/mm3 (4.5-10.0)
[2022-05-10 13:33] LABS: Alanine Aminotransferase 13 U/L (6-35); Albumin Level 4.5 g/dL (3.5-5.1); Alkaline Phosphatase 141 U/L (38-126); Anion Gap 10 mmol/L (8-16); Aspartate Amino Transferase 28 U/L (14-36); Bilirubin,Total 0.8 mg/dL (0.2-1.3); Blood Urea Nitrogen 15 mg/dL (7-17); Calcium 9.7 mg/dL (8.4-10.2); Carbon Dioxide 25 mmol/L (22-30); Chloride 100 mmol/L (98-107); Estimated CRCL calculation 49 ml/min; Estimated Glomerular Filt Rate > 60; Glucose 132 mg/dL (65-110); Potassium 4.1 mmol/L (3.4-5.0); Sodium 135 mmol/L (137-145)
[2022-05-10 13:37] LABS: Prothrombin Time 12.8 Seconds (11.1-14.7)
[2022-05-10 13:38] LABS: Partial Thromboplastin Time 27.7 SECONDS (22.3-36.8)
[2022-05-10 13:56] LABS: Troponin I 0.236 ng/mL (0.000-0.034)
--- NOTE | 2022-05-10 14:39 | ED.NEUROSD ---
HPI - Neuro Symptoms/Deficit General Chief Complaint: Suspected CVA Stated Complaint: right arm numb and slurred speech - 3 hours ago Time Seen by Provider: 05/10/22 14:39 History of Present Illness HPI Narrative: This is a 62-year-old female presenting ED for right arm weakness and slurred speech. last known normal was 10:00 a.m.. Patient says she was reaching for a light switch him and felt her arm was numb and then became weak. She also noted slurred speech at that time.He then came to the emergency department for evaluation. the numbness weakness of her arm has since resolved. She still has some slurred speech. She denies numbness tingling weakness in extremity. She denies any vision changes. She denies headache. She denies trauma. Related Data Home Medications Medication Instructions Recorded Confirmed gabapentin 800 mg tablet 800 mg PO DAILY 09/17/19 04/28/22 albuterol sulfate 90 mcg/actuation 90 inh inhalation Q4-6H PRN 04/13/20 04/28/22 aerosol inhaler Shortness Of Breath aspirin 81 mg tablet,delayed 81 mg PO DAILY 04/13/20 04/28/22 release levothyroxine 75 mcg tablet 75 mcg PO QAM 04/13/20 04/28/22 (Euthyrox) pramipexole 0.125 mg tablet 0.125 mg PO QPM 04/13/20 04/28/22 (Mirapex) naloxone 4 mg/actuation nasal spray 4 mg intranasal Q2-3M PRN 01/19/21 04/28/22 Respiratory Distress Allergies Allergy/AdvReac Type Severity Reaction Status Date / Time codeine Allergy Unknown Depression Verified 05/10/22 12:44 poison allyson extract Allergy Unknown RASH Verified 05/10/22 12:44 SWELLING BEES Allergy Unknown SWELLING, Uncoded 05/10/22 12:44 PASS OUT Review of Systems Review of Systems: CONSTITUTIONAL: Denies night sweats. EYES: No eye pain ENT: Denies rhinorrhea CARDIOVASCULAR: Denies palpitations RESPIRATORY: Denies hemoptysis GASTROINTESTINAL: Denies hematemesis GENITOURINARY: Denies hematuria. SKIN: Denies rash MUSCULOSKELETAL: Denies myalgia. NEUROLOGIC: Denies weakness. PSYCHIATRIC: Denies delusions PMFSH Past Medical History Medical History Anal squamous cell carcinoma Asthma COPD (chronic obstructive pulmonary disease) Surgical History Surgical History History of appendectomy 1970 History of umbilical hernia repair with mesh in 1989 Family History Family History Father Hypertension Mother Family history of malignant neoplasm Sibling Family history of diabetes mellitus in first degree relative Family history of heart disease in male family member before age 55 Other Diabetes mellitus Family history of allergic disorder Family history of arthritis Social History Social History Smoking packs per day: 1 Smoking cigarettes per day: 20.0 Smoking status: Current every day smoker Second hand tobacco smoke exposure: Yes Alcohol intake: never Gender identity (if verbalized by the patient): Female Spiritual care concerns: No Exam Narrative: APPEARANCE: No apparent distress. Head atraumatic. EYES: PERRLA/EOMI, NOSE: Normal no drainage NECK: Supple, Trachea midline RESPIRATORY: CTAB, No increased work of breathing. CARDIOVASCULAR: S1S2 appreciated ABDOMINAL: Soft, nontender, nondistended, MUSCULOSKELETAl: No obvious deformities NEURO: Alert. Moving 4/4 extremities SKIN:: Warm, dry. Normal color PSYCHIATRIC: Normal affect NIH Stroke Scale/Score (NIHSS) from [email or web address] on 05/10/2022 All calculations should be rechecked by clinician prior to use RESULT SUMMARY: 1 points NIH Stroke Scale INPUTS: 1A: Level of consciousness ?> 0 = Alert; keenly responsive 1B: Ask month and age ?> 0 = Both questions right 1C: 'Blink eyes' & 'squeeze hands' ?> 0 = Performs both tasks 2: Horizontal extraocular movements ?> 0 = Normal
[2022-05-10] MEDS: ASPIRIN 325 MG TABLET PO (15:36)
== END 2022-05-10 16:21 | disposition left against medical advice (07) ==
PROVIDERS: Emergency Medicine; Emergency Provider Emergency Medicine; PCP Family Medicine
DX: I63.9 Cerebral infarction, unspecified (principal); J44.9 Chronic obstructive pulmonary disease, unspecified
CPT/HCPCS: 36415; 70450; 71045; 80053; 82948; 84484; 85025; 85055; 85610; 85730; 93005; 99284; A9270

== ENCOUNTER 2022-06-27 14:08 | Outpatient (CLI) | payer MEDICARE, MEDICAID, SELFPAY ==
--- NOTE | ~2022-06-27 | CT_ITS ---
EXAMINATION: CT abdomen pelvis w con DATE: 06/27/2022 14:49 INDICATION: Anal cancer. TECHNIQUE: Computed tomography (CT) of the abdomen and pelvis was performed with 100 cc Omnipaque 350 intravenous contrast. The dose-length product was 260.45 mGy-cm. Automated exposure control and iter ative reconstruction technique were employed. COMPARISON: Comparison to multiple prior studies sequentially, with oldest reviewed study dated 03/2019. FINDINGS: Lung bases are unremarkable. Heart size normal. No significant pleural or pericardial effus ion. There are at least 6 chronic masses of the liver without increased activity on prior PET scan. S ome of which contain interrupted peripheral puddling consistent with hemangiomas. There is a 1.8 cm e nhancing mass of the left kidney. There is a 1.8 cm hypoenhancing mass of the right kidney medially. The spleen, pancreas, adrenal glands are unremarkable. Gallbladder is present. There is calcified fib roid uterus. There is an end colostomy in the left abdomen. No lymphadenopathy. No significant vascul ar abnormalities. There is heterogeneously enhancing mass containing fluid and punctate gas in the ex pected location of the rectum, suspicious for recurrent malignancy. This mass measures 5.3 x 5.1 x 5. 8 cm. There is mild levoscoliosis of the lumbar spine. IMPRESSION: 1. Abnormal pelvic mass which is located in the previously expected location of the rectum. This mass measures up to 5.8 cm with peripheral irregular enhancement containing fluid and punctate gas. Findi ngs suspicious for recurrent malignancy, although abscess is not excluded. 2: No significant change to enhancing bilateral renal masses, suspicious for renal cell carcinoma. Reviewed, dictated and finalized at location A. IMPRESSION: 1. Abnormal pelvic mass which is located in the previously expected location of the rectum. This mass measures up to 5.8 cm with peripheral irregular enhancem ent containing fluid and punctate gas. Findings suspicious for recurrent malign wei, although abscess is not excluded. 2: No significant change to enhancing bilateral renal masses, suspicious for re nal cell carcinoma.
== END 2022-06-27 14:09 | disposition home or self-care (01) ==
PROVIDERS: PCP Family Medicine; Visit Provider Internal Medicine Hematology & Oncology
DX: C21.0 Malignant neoplasm of anus, unspecified (principal); M41.9 Scoliosis, unspecified
CPT/HCPCS: 74177; Q9967

== ENCOUNTER 2022-10-31 08:33 | Outpatient (CLI) | payer MEDICARE, MEDICAID, SELFPAY ==
--- NOTE | ~2022-10-31 | CT_ITS ---
Clinical Indication: Anal cancer CT Scan of the Chest, Abdomen, and Pelvis with Contrast: Technique: Contiguous sections were acquired throughout the chest, abdomen, and pelvis after intraven ous administration of 100 cc of Omnipaque 350. Dose reduction technique was used on this scan by manas peterson automated exposure control and iterative reconstruction technique. The dose-length product (DL P) was 263.78 mGy-cm. COMPARISON: 06/27/2022 Findings: There is no evidence of any significant mediastinal, hilar or axillary lymphadenopathy. The mediastin al soft tissues appear normal. There is no evidence of pleural or pericardial effusion. There is moderate emphysema. There are several clustered subcentimeter pulmonary nodules at the later al right middle lobe (axial image 79 for example), indeterminate. Several hypodense hepatic masses are seen, probable focal peripheral enhancement, suggestive of heman giomas. The spleen, pancreas, gallbladder, adrenals and left kidney are within normal limits. Stable noncystic mass in the medial right kidney measuring 1.8 cm in diameter (axial image 137).. No evidenc e of aortic aneurysm. No lymphadenopathy. There is a large, irregular mass in the region of the distal rectum/anus, with central central nonenh ancement and small bubbles of air, compatible with history of anal carcinoma. This mass measures up t o approximately 6.6 x 6.0 x 6.5 cm in extent, probably minimally increased in size from prior exam. L eft lower quadrant diverting ostomy present. There is a large amount of stool in the more proximal la rge bowel, with questionable narrowing at the region of the stoma/left anterior abdominal wall defect , versus peristalsis. Urinary bladder is unremarkable. Calcified uterine fibroid unchanged. Small amount of ascites and mil d diffuse mesenteric edema are present. Impression: 6.6 x 6.0 x 6.5 cm heterogeneous mass at the region of the distal rectum, compatible with malignancy, mildly increased in size from prior exam. There is probable extensive central necrosis with small am ount of internal air/gas. Stable hypodense, noncystic mass in the medial right kidney, which could reflect a small renal cell c arcinoma. Cluster of subcentimeter nodules in the right middle lobe, nonspecific. These are new since PET/CT da sancho 04/27/2020. This could reflect focal small airways infection. Metastatic disease not completely ex cluded, though the clustering is atypical, and this diagnosis is felt to be less likely. Small amount of abdominopelvic ascites. Uterine fibroid, unchanged. Moderate emphysema. Reviewed, dictated and finalized at location M. ICAL STATISTICS MANAGER Impression: 6.6 x 6.0 x 6.5 cm heterogeneous mass at the region of the distal rectum, luna tible with malignancy, mildly increased in size from prior exam. There is proba ble extensive central necrosis with small amount of internal air/gas. Stable hypodense, noncystic mass in the medial right kidney, which could reflec t a small renal cell carcinoma. Cluster of subcentimeter nodules in the right middle lobe, nonspecific. These a re new since PET/CT dated 04/27/2020. This could reflect focal small airways inf ection. Metastatic disease not completely excluded, though the clustering is at ypical, and this diagnosis is felt to be less likely. Small amount of abdominopelvic ascites. Uterine fibroid, unchanged. Moderate emphysema.
== END 2022-10-31 08:34 | disposition home or self-care (01) ==
LOC: ANHIMG 08:36
PROVIDERS: PCP Family Medicine; Visit Provider Internal Medicine Hematology & Oncology
DX: C21.0 Malignant neoplasm of anus, unspecified (principal); N28.89 Other specified disorders of kidney and ureter; R91.8 Other nonspecific abnormal finding of lung field; R18.8 Other ascites; D25.9 Leiomyoma of uterus, unspecified; J43.9 Emphysema, unspecified
CPT/HCPCS: 71260; 74177; Q9967

== ENCOUNTER 2022-11-09 10:38 | Emergency (ER) | payer MEDICARE, MEDICAID, SELFPAY ==
[2022-11-09] VITALS (21 sets, daily range): BP systolic 113–124; BP diastolic 63–82; PULSE 62–101; RESP 14–24; TEMP 36.8; O2SAT 95–100
--- NOTE | ~2022-11-09 | XR_ITS ---
EXAMINATION: XR chest 2V DATE: 11/09/2022 11:29 INDICATION: Shortness of breath TECHNIQUE: AP and lateral views of the chest are obtained. COMPARISON: 10/31/2022, 05/10/2022 FINDINGS: Again seen are clustered nodules at the lateral aspect of the right middle lobe. No acute a irspace opacities are identified. A right internal jugular Port-A-Cath ends with its tip in the dista l superior vena cava. No pleural effusion or pneumothorax. The cardiomediastinal silhouette is normal . There is moderate thoracic spondylosis. IMPRESSION: 1. Persistent clustered nodules at the lateral aspect of the right middle lobe, likely infectious or inflammatory. Reviewed, dictated and finalized at location L. RICT MANAGER
--- NOTE | 2022-11-09 11:06 | ECG_ITS ---
Measurements Intervals [place] Rate: 85 P: 90 OK: 140 QRS: -35 QRSD: 81 T: 55 QT: 335 QTc: 400 Interpretive Statements SINUS RHYTHM LEFT AXIS DEVIATION [QRS AXIS < -30] POSSIBLE ANTERIOR MYOCARDIAL INFARCTION , OF INDETERMINATE AGE [30 ms Q WAVE IN V3/V4, OR R < 0.2 mV IN V4] ABNORMAL ECG COMPARED TO ECG 05/10/2022 13:08:19 LEFT-AXIS DEVIATION NOW PRESENT Electronically Signed On 11-09-2022 14:00:09 MATERIAL REQUISITIONER by Tommie Connelly M.D.
[2022-11-09 11:19] LABS: Basophils Percent Auto 0.2 % (0.2-1.2); Hematocrit 33.3 % (37.0-47.0); Hemoglobin 11.1 g/dL (12.0-15.0); Immature Granulocyte Absolute 0.02 K/mm3 (0.00-0.031); Immature Granulocyte Percent A 0.2 % (0-0.5); Lymphocytes Absolute Auto 0.38 K/mm3 (0.9-3.2); Lymphocytes Percent Auto 4.7 % (18.3-44.2); Mean Corpuscular HGB Conc 33.3 g/dl (32-36); Mean Corpuscular Hemoglobin 32.7 pg (26-34); Mean Corpuscular Volume 98.2 fl (80-100); Mean Platelet Volume 8.1 fl (7.4-10.4); Monocytes Absolute Auto 0.3 K/mm3 (0.1-0.6); Monocytes Percent Auto 3.9 % (2.6-8.5); Neutrophils Absolute Auto 7.4 K/mm3 (1.3-6.7); Platelet Count Result 233 k/mm3 (150-375); Red Blood Count 3.39 M/mm3 (4.2-5.4); Red Cell Distribution Width 17.1 % (11.5-14.5); White Blood Count 8.2 K/mm3 (4.5-10.0)
[2022-11-09 11:38] LABS: Chloride 102 mmol/L (98-107)
[2022-11-09 11:43] LABS: Alanine Aminotransferase 24 U/L (6-35); Albumin Level 3.5 g/dL (3.5-5.1); Alkaline Phosphatase 114 U/L (38-126); Anion Gap 4 mmol/L (8-16); Aspartate Amino Transferase 27 U/L (14-36); Bilirubin,Total 0.5 mg/dL (0.2-1.3); Blood Urea Nitrogen 15 mg/dL (7-17); Calcium 8.4 mg/dL (8.4-10.2); Carbon Dioxide 24 mmol/L (22-30); Estimated CRCL calculation 64 ml/min; Estimated Glomerular Filt Rate > 60; Glucose 144 mg/dL (65-110); Potassium 3.4 mmol/L (3.4-5.0); Sodium 130 mmol/L (137-145)
--- NOTE | 2022-11-09 12:58 | PC.NURSE ---
Patient ambulated without difficulty with pulse oximeter on. O2 ranged from 96%-98% on room air.
--- NOTE | 2022-11-09 13:20 | ED.SOB ---
HPI - SOB/Dyspnea General Chief Complaint: Shortness of Breath/Dyspnea Stated Complaint: resp. distress Time Seen by Provider: 11/09/22 11:22 History of Present Illness HPI Narrative: Patient is a 62-year-old female who presents ER with shortness of breath. Sudden onset. No improvement with home nebulizer or albuterol so she called EMS. Received nebulizer treatment by EMS and symptoms resolved. Denies fevers or chills or sweats. No chest pain or chest pressure. No productive cough reports some chronic cough related to COPD. Currently undergoing chemotherapy for metastatic colon cancer. No other complaints at this time. No distress. No hypoxia or oxygen requirement. Related Data Home Medications Medication Instructions Recorded Confirmed gabapentin 800 mg tablet 800 mg PO DAILY 09/17/19 10/20/22 albuterol sulfate 90 mcg/actuation 90 inh inhalation Q4-6H PRN 04/13/20 10/20/22 aerosol inhaler Shortness Of Breath aspirin 81 mg tablet,delayed 81 mg PO DAILY 04/13/20 10/20/22 release levothyroxine 75 mcg tablet 75 mcg PO QAM 04/13/20 10/20/22 (Euthyrox) pramipexole 0.125 mg tablet 0.125 mg PO QPM 04/13/20 10/20/22 (Mirapex) naloxone 4 mg/actuation nasal spray 4 mg intranasal Q2-3M PRN 01/19/21 10/20/22 Respiratory Distress Allergies Allergy/AdvReac Type Severity Reaction Status Date / Time codeine Allergy Unknown Depression Verified 10/20/22 10:58 poison allyson extract Allergy Unknown RASH Verified 10/20/22 10:58 SWELLING BEES Allergy Unknown SWELLING, Uncoded 10/20/22 10:58 PASS OUT Review of Systems Review of Systems: All systems reviewed & are unremarkable except as noted in HPI and below Constitutional: Constitutional: Denies chills, Denies fatigue and Denies fever(s) ENT: Denies nasal congestion and Denies sore throat Cardiovascular: Cardiovascular: Denies chest pain, Denies rapid heart rate and Denies radiating jaw, neck or arm pain Respiratory: Respiratory: Reports cough, Reports dyspnea and Reports wheezing Gastrointestinal: Gastrointestinal: Denies abdominal pain, Denies nausea and Denies vomiting Genitourinary: Genitourinary: Denies dysuria and Denies flank pain [facility] Past Medical History Medical History (Updated 11/09/22 @ 13:28 by Alex Apodaca MD) Anal squamous cell carcinoma Asthma COPD (chronic obstructive pulmonary disease) Surgical History Surgical History History of appendectomy 1970 History of umbilical hernia repair with mesh in 1989 Family History Family History Father Hypertension Mother Family history of malignant neoplasm Sibling Family history of diabetes mellitus in first degree relative Family history of heart disease in male family member before age 55 Other Diabetes mellitus Family history of allergic disorder Family history of arthritis Social History Social History Smoking packs per day: 1 Smoking cigarettes per day: 20.0 Smoking status: Current every day smoker Second hand tobacco smoke exposure: Yes Alcohol intake: never Gender identity (if verbalized by the patient): Female Spiritual care concerns: No Exam Narrative: GENERAL: Chronically ill-appearing, well-nourished, and in no acute distress. HEAD: Normocephalic, atraumatic. EYES: PERRL and EOMI. ENT: Mucous membranes moist. CHEST: Clear to auscultation. No respiratory distress. Right chest wall Port-A-Cath. HEART: Regular rate and rhythm. Normal peripheral pulses. ABDOMEN: Soft, nontender, nondistended. EXTREMITIES: Normal range of motion. No edema. NEURO: Alert and oriented x3. PSYCH: Normal mood and affect. Course Course Emergency Course: Patient resting comfortably. She has no dyspnea after receiving nebulizer treatment from EMS. I discussed her most recent CT scan which shows en
--- NOTE | 2022-11-09 13:40 | PC.NURSE ---
Heparin flush used to discontinue port-a-cath access
== END 2022-11-09 13:50 | disposition home or self-care (01) ==
PROVIDERS: Emergency Provider Emergency Medicine; PCP Family Medicine
DX: J18.9 Pneumonia, unspecified organism (principal); C21.0 Malignant neoplasm of anus, unspecified; J44.9 Chronic obstructive pulmonary disease, unspecified; F17.210 Nicotine dependence, cigarettes, uncomplicated; R94.31 Abnormal electrocardiogram [ECG] [EKG]; Z79.899 Other long term (current) drug therapy; C78.5 Secondary malignant neoplasm of large intestine and rectum
CPT/HCPCS: 36415; 71046; 80053; 85025; 93005; 99284; J1642

== ENCOUNTER 2023-03-14 16:03 | Emergency (ER) | payer MEDICARE, MEDICAID, SELFPAY ==
--- NOTE | ~2023-03-14 | CT_ITS ---
EXAMINATION: CT abdomen pelvis w con INDICATION: Vaginal discharge, concern for colouterine fistula TECHNIQUE: Computed tomographic images of the abdomen and pelvis were obtained after the administrati on of 100 cc of Omnipaque 350 intravenous contrast. The dose-length product (DLP) was 189.18 mGy-cm. Automated exposure control and iterative reconstruction technique were employed. COMPARISON: 10/31/2022 FINDINGS: There is a stable small cluster of nodules in the right middle lobe. Tree-in-bud nodules ar e also present in the left lower lobe, likely infectious or inflammatory. Hemangiomas of the liver me asure up to 2.4 cm in the right hepatic lobe. The spleen, pancreas, gallbladder, and adrenal glands a re normal. There is a stable 1.7 cm soft tissue density mass in the medial aspect of the right kidney . The left kidney is unremarkable. There is an approximately 7.6 x 6.0 cm necrotic mass of the rectum with central fluid and gas. The mass is difficult to discriminate from the uterus and vagina. There is a large calcified fibroid of the uterus. The urinary bladder is moderately distended. A diverting ostomy is noted in the left lower quadrant. No free intraperitoneal gas or evidence of bowel obstruct ion. No definite abdominal or pelvic lymphadenopathy is identified. IMPRESSION: 1. Slight increase in size of a necrotic mass of the rectum abutting the uterus and vagina. Direct in vasion is not definitely confirmed or excluded. 2. Stable right kidney mass, likely renal cell carcinoma. Reviewed, dictated and finalized at location F. IMPRESSION: 1. Slight increase in size of a necrotic mass of the rectum abutting the uterus and vagina. Direct invasion is not definitely confirmed or excluded. 2. Stable right kidney mass, likely renal cell carcinoma.
--- NOTE | ~2023-03-14 | XR_ITS ---
XR chest port-a-cath/central DATE: 03/14/2023 16:54 INDICATION: Port-A-Cath insertion TECHNIQUE: Portable AP chest on 03/14/2023 1650 hours COMPARISON: November 09, 2022 2 view chest FINDINGS: There is a right-sided internal jugular Port-A-Cath, catheter tip overlying the superior ve na cava. No pneumothorax is detected. There is bilateral hyperinflation and relative flattening the diaphragm, consistent with COPD. Approximately 1 cm opacity overlying right upper lung; pulmonary mass is not excluded. CT thorax is r ecommended for further evaluation. No pulmonary infiltrate or consolidation, pleural effusion or pulmonary vascular congestion or pneumo thorax is detected. Heart size is normal. No hilar or mediastinal enlargement. Aortic arch calcification. IMPRESSION: Right Port-A-Cath catheter tip in superior vena cava COPD Cannot exclude approximately 1 cm right upper lobe mass; CT thorax is recommended for further evaluat ion Reviewed, dictated and finalized at Location A. Reviewed, dictated and finalized at location [] IMPRESSION: Right Port-A-Cath catheter tip in superior vena cava COPD Cannot exclude approximately 1 cm right upper lobe mass; CT thorax is recommend ed for further evaluation
[2023-03-14 16:10] VITALS: BP 109/79; PULSE 99; RESP 18; TEMP 36.6; O2SAT 97
[2023-03-14] MEDS: SODIUM CHLORIDE 0.9% IV 1,000 ML 999 ML IV CONT (16:26)
[2023-03-14 16:46] LABS: Basophils Absolute Auto 0.1 K/mm3 (0.0-0.1); Basophils Percent Auto 0.3 % (0.2-1.2); Eosinophils Percent Auto 0.1 % (0-4.4); Hematocrit 32.8 % (37.0-47.0); Hemoglobin 10.1 g/dL (12.0-15.0); Immature Granulocyte Absolute 0.12 K/mm3 (0.00-0.031); Immature Granulocyte Percent A 0.7 % (0-0.5); Lymphocytes Absolute Auto 0.77 K/mm3 (0.9-3.2); Lymphocytes Percent Auto 4.2 % (18.3-44.2); Mean Corpuscular HGB Conc 30.8 g/dl (32-36); Mean Corpuscular Hemoglobin 26.1 pg (26-34); Mean Corpuscular Volume 84.8 fl (80-100); Mean Platelet Volume 7.8 fl (7.4-10.4); Monocytes Absolute Auto 0.9 K/mm3 (0.1-0.6); Monocytes Percent Auto 4.7 % (2.6-8.5); Neutrophils Absolute Auto 16.6 K/mm3 (1.3-6.7); Platelet Count Result 370 k/mm3 (150-375); Red Blood Count 3.87 M/mm3 (4.2-5.4); Red Cell Distribution Width 17.7 % (11.5-14.5); White Blood Count 18.4 K/mm3 (4.5-10.0)
[2023-03-14 16:57] LABS: Alanine Aminotransferase 17 U/L (6-35); Albumin Level 3.5 g/dL (3.5-5.1); Alkaline Phosphatase 102 U/L (38-126); Anion Gap 5 mmol/L (8-16); Aspartate Amino Transferase 23 U/L (14-36); Bilirubin,Total 0.4 mg/dL (0.2-1.3); Blood Urea Nitrogen 16 mg/dL (7-17); Calcium 8.4 mg/dL (8.4-10.2); Carbon Dioxide 28 mmol/L (22-30); Chloride 102 mmol/L (98-107); Estimated CRCL calculation 62 ml/min; Estimated Glomerular Filt Rate > 60; Glucose 106 mg/dL (65-110); Partial Thromboplastin Time 33.7 SECONDS (22.3-36.8); Potassium 3.8 mmol/L (3.4-5.0); Prothrombin Time 14.1 Seconds (11.1-14.7); Sodium 135 mmol/L (137-145)
[2023-03-14] MEDS: HYDROmorphone HCL INJ (*CRX) 1 MG/ML SYR IV PUSH (17:02)
--- NOTE | 2023-03-14 17:06 | ED.GENADULT ---
HPI - General Adult General Chief complaint: Vaginal Bleeding Stated complaint: vaginal bleeding; stage 4 colon ca w mets Time Seen by Provider: 03/14/23 16:13 History of Present Illness HPI narrative: 63-year-old female presented the emergency department for evaluation of vaginal bleeding. Patient does have stage IV colon cancer and is being followed by Dr Bey. Patient states she was having some vaginal bleeding/vaginal discharge that had been minor for the last few weeks but did increase more over the last few days. Patient does have a prior history of of a partial colectomy that was done at a hospital in [place]. Patient is currently still on chemotherapy. Also completed her radiation therapy. Related Data Home Medications Medication Instructions Recorded Confirmed gabapentin 800 mg tablet 800 mg PO DAILY 09/17/19 03/02/23 albuterol sulfate 90 mcg/actuation 90 inh inhalation Q4-6H PRN 04/13/20 03/02/23 aerosol inhaler Shortness Of Breath aspirin 81 mg tablet,delayed 81 mg PO DAILY 04/13/20 03/02/23 release levothyroxine 75 mcg tablet 75 mcg PO QAM 04/13/20 03/02/23 (Euthyrox) pramipexole 0.125 mg tablet 0.125 mg PO QPM 04/13/20 03/02/23 (Mirapex) naloxone 4 mg/actuation nasal spray 4 mg intranasal Q2-3M PRN 01/19/21 03/02/23 Respiratory Distress Allergies Allergy/AdvReac Type Severity Reaction Status Date / Time codeine Allergy Unknown Depression Verified 03/14/23 16:19 poison allyson extract Allergy Unknown RASH Verified 03/14/23 16:19 SWELLING BEES Allergy Unknown SWELLING, Uncoded 03/14/23 16:19 PASS OUT Review of Systems Review of Systems: All systems reviewed & are unremarkable except as noted in HPI and below PMFSH Past Medical History Medical History (Updated 03/14/23 @ 18:57 by Paddy Del Rio MD) Anal squamous cell carcinoma Asthma COPD (chronic obstructive pulmonary disease) Surgical History Surgical History History of appendectomy 1970 History of umbilical hernia repair with mesh in 1989 Family History Family History Father Hypertension Mother Family history of malignant neoplasm Sibling Family history of diabetes mellitus in first degree relative Family history of heart disease in male family member before age 55 Other Diabetes mellitus Family history of allergic disorder Family history of arthritis Social History Social History Smoking packs per day: 1 Smoking cigarettes per day: 20.0 Smoking status: Current every day smoker Second hand tobacco smoke exposure: Yes Alcohol intake: never Gender identity (if verbalized by the patient): Female Spiritual care concerns: No Exam Narrative: APPEARANCE: Well appearing, no pain, no distress, well-nourished. HEAD: normocephalic, atraumatic. EYES: PERRLA/EOMI, conjunctivae clear. NOSE: Normal no drainage RESPIRATORY: Airway patent, respirations nonlabored. Clear to auscultation bilaterally, no rales, rhonchi, wheezing. CARDIOVASCULAR: Regular rate and rhythm without murmurs rubs or gallops. ABDOMINAL: Soft, nontender, nondistended, normal bowel sounds Genitourinary: Feculent smelling vaginal bleeding, old blood no bright red blood MUSCULOSKELETAL: Moves all extremities. Strength/ROM intact, No edema, No calf tenderness. NEURO: Alert. Cranial nerves II through XII intact. Good gait. Good coordination SKIN: Warm, dry. Normal Color PSYCHIATRIC: Normal affect/mood. Course Course Emergency Course: 63-year-old female presented to the emergency department for evaluation of vaginal discharge. On pelvic exam the vaginal discharge had a strong odor that may have been feculent. CT scan was ordered and showed a slight increase in the size of a necrotic mass in the rectum abutting the uterus and vagina. Direct invasion is not definitel
[2023-03-14 19:05] VITALS: BP 110/65; PULSE 79; RESP 19; O2SAT 96
[2023-03-14] MEDS: CIPROFLOXACIN 500 MG TAB PO (19:06)
[2023-03-14] MEDS: metroNIDAZOLE 250 MG TABLET 500 MG PO (19:06)
[2023-03-14] MEDS: HEPARIN SODIUM LOCK FLUSH 500 UNITS/5 ML VIAL (19:13)
--- NOTE | 2023-03-14 19:19 | PC.NURSE ---
pt. not wanting to be admitted to hospital or started on hospice at this time. pt made aware of benefits of staying and risks of leaving. pt verbalized understanding and would like to speak with her family first about her next steps. JAY Del Rio made aware and okay with situation.
== END 2023-03-14 19:22 | disposition home or self-care (01) ==
PROVIDERS: Emergency Provider Emergency Medicine; PCP Family Medicine
DX: N89.8 Other specified noninflammatory disorders of vagina (principal); N28.89 Other specified disorders of kidney and ureter; C18.9 Malignant neoplasm of colon, unspecified; J44.9 Chronic obstructive pulmonary disease, unspecified; F17.210 Nicotine dependence, cigarettes, uncomplicated; Z79.899 Other long term (current) drug therapy; Z79.82 Long term (current) use of aspirin; Z90.49 Acquired absence of other specified parts of digestive tract; R91.8 Other nonspecific abnormal finding of lung field; K62.89 Other specified diseases of anus and rectum
CPT/HCPCS: 36415; 74177; 80053; 85025; 85610; 85730; 86850; 86900; 86901; 87040; 96361; 96374; 99284; A9270; J1170; J1642; J7030; Q9967

== ENCOUNTER 2023-03-16 20:58 | Emergency (ER) | payer MEDICARE, MEDICAID, SELFPAY ==
[2023-03-16 21:03] VITALS: BP 124/80; PULSE 87; RESP 17; TEMP 36.8; O2SAT 99
[2023-03-16 22:34] LABS: Appearance Urine Clear (Clear); Bacteria Urine None Seen /hpf; Bilirubin Urine Negative (Negative); Color Urine Yellow (Yellow); Glucose Urine UA Negative (Negative); Ketones Urine Negative (Negative); Leukocyte Esterase Ur Negative LEU/UL (Negative); Nitrate Urine Negative (Negative); Non Pathogenic Casts 0-2; Protein Urine Negative (Negative); Specific Grav Ur 1.018 (1.001-1.035); Squamous Epithelial Cell Urine None seen /hpf (Few); Urobilinogen Urine 0.2 mg/dL (<2.0); WBC Urine 0-5 /hpf; pH Urine 6.5 (5.0-9.0)
[2023-03-16 22:46] LABS: Add Urine Microscopic? NO
--- NOTE | 2023-03-16 23:03 | PC.NURSE ---
I spoke with Johanna from [facility] in regards to setting up hospice care. Johanna will call me back after speaking with the family.
[2023-03-16 23:07] LABS: Basophils Percent Auto 0.2 % (0.2-1.2); Hematocrit 36.3 % (37.0-47.0); Hemoglobin 11.4 g/dL (12.0-15.0); Immature Granulocyte Absolute 0.05 K/mm3 (0.00-0.031); Immature Granulocyte Percent A 0.4 % (0-0.5); Lymphocytes Absolute Auto 0.75 K/mm3 (0.9-3.2); Lymphocytes Percent Auto 5.6 % (18.3-44.2); Mean Corpuscular HGB Conc 31.4 g/dl (32-36); Mean Corpuscular Hemoglobin 26.6 pg (26-34); Mean Corpuscular Volume 84.8 fl (80-100); Mean Platelet Volume 7.9 fl (7.4-10.4); Monocytes Absolute Auto 0.6 K/mm3 (0.1-0.6); Monocytes Percent Auto 4.4 % (2.6-8.5); Neutrophils Absolute Auto 11.9 K/mm3 (1.3-6.7); Neutrophils Percent Auto 89.4 % (45.5-73.1); Platelet Count Result 413 k/mm3 (150-375); Red Blood Count 4.28 M/mm3 (4.2-5.4); White Blood Count 13.3 K/mm3 (4.5-10.0)
[2023-03-16] MEDS: HYDROmorphone HCL INJ (*CRX) 1 MG/ML SYR IV PUSH (23:14)
[2023-03-16 23:15] LABS: Alanine Aminotransferase 16 U/L (6-35); Albumin Level 3.5 g/dL (3.5-5.1); Alkaline Phosphatase 114 U/L (38-126); Anion Gap 6 mmol/L (8-16); Aspartate Amino Transferase 26 U/L (14-36); Bilirubin,Total 0.4 mg/dL (0.2-1.3); Blood Urea Nitrogen 22 mg/dL (7-17); Calcium 8.6 mg/dL (8.4-10.2); Carbon Dioxide 25 mmol/L (22-30); Chloride 101 mmol/L (98-107); Estimated CRCL calculation 61 ml/min; Estimated Glomerular Filt Rate > 60; Glucose 96 mg/dL (65-110); Lipase 67 U/L (23-300); Potassium 3.9 mmol/L (3.4-5.0); Sodium 132 mmol/L (137-145)
[2023-03-16 23:16] VITALS: BP 109/56; PULSE 87; RESP 15; TEMP 36.9; O2SAT 97
--- NOTE | 2023-03-17 00:02 | PC.NURSE ---
I spoke with Mariam from [facility] who tells me a nurse will be out to see the family nica.
--- NOTE | 2023-03-17 00:06 | ED.GENADULT ---
HPI - General Adult General Chief complaint: Abdominal Pain Stated complaint: abd pain Time Seen by Provider: 03/16/23 22:01 History of Present Illness HPI narrative: Patient 63-year-old female who presents the emergency department with chief complaint of pelvic pain. The patient reports that she was seen in the emergency department about a week ago of which she has been having pelvic pain the patient reports she has history of anorectal cancer has had a diverting colostomy and has had recurrence of the tumor that has increased in size. The patient reports that she is not a surgical candidate and on her previous visit they had discussed hospice versus transfer versus going home and outpatient follow-up the patient returns to the emergency department as her oral pain medications have not been relieving her pain the patient reports that this time she would like to explore hospice care. Related Data Home Medications Medication Instructions Recorded Confirmed gabapentin 800 mg tablet 800 mg PO DAILY 09/17/19 03/02/23 albuterol sulfate 90 mcg/actuation 90 inh inhalation Q4-6H PRN 04/13/20 03/02/23 aerosol inhaler Shortness Of Breath aspirin 81 mg tablet,delayed 81 mg PO DAILY 04/13/20 03/02/23 release levothyroxine 75 mcg tablet 75 mcg PO QAM 04/13/20 03/02/23 (Euthyrox) pramipexole 0.125 mg tablet 0.125 mg PO QPM 04/13/20 03/02/23 (Mirapex) naloxone 4 mg/actuation nasal spray 4 mg intranasal Q2-3M PRN 01/19/21 03/02/23 Respiratory Distress Allergies Allergy/AdvReac Type Severity Reaction Status Date / Time codeine Allergy Unknown Depression Verified 03/14/23 16:19 poison allyson extract Allergy Unknown RASH Verified 03/14/23 16:19 SWELLING BEES Allergy Unknown SWELLING, Uncoded 03/14/23 16:19 PASS OUT Review of Systems Review of Systems: A 10 system review of systems was completed on the patient and is negative except for what is stated in the HPI. Nursing and ancillary documentation was reviewed. [facility] Past Medical History Medical History (Updated 03/17/23 @ 01:28 by Stef Fong MD) Anal squamous cell carcinoma Asthma COPD (chronic obstructive pulmonary disease) Surgical History Surgical History History of appendectomy 1970 History of umbilical hernia repair with mesh in 1989 Family History Family History Father Hypertension Mother Family history of malignant neoplasm Sibling Family history of diabetes mellitus in first degree relative Family history of heart disease in male family member before age 55 Other Diabetes mellitus Family history of allergic disorder Family history of arthritis Social History Social History Smoking packs per day: 1 Smoking cigarettes per day: 20.0 Smoking status: Current every day smoker Second hand tobacco smoke exposure: Yes Alcohol intake: never Gender identity (if verbalized by the patient): Female Spiritual care concerns: No Exam Narrative: GENERAL: Well-appearing, well-nourished, and in no acute distress. HEAD: Normocephalic, atraumatic. EYES: PERRLA and EOMI. ENT: Nares clear, no rhinorrhea or epistaxis. Mucous membranes moist. NECK: Supple. CHEST: Clear to auscultation. No respiratory distress. HEART: Regular rate and rhythm. No murmur heard. Normal peripheral pulses. ABDOMEN: Soft, nontender there is a ostomy present that is intact and pink, nondistended, normal active bowel sounds. EXTREMITIES: Normal range of motion. No edema. SKIN: Warm, dry, no rash. NEURO: No focal deficits. Alert and oriented x3. PSYCH: Normal mood and affect. Course Vital Signs Vital signs: Vital Signs Temperature 36.8 C 03/16/23 21:03 Pulse Rate 87 03/16/23 21:03 Respiratory Rate 17 03/16/23 21:03 Blood Pressure
[2023-03-17 01:26] VITALS: BP 101/64; PULSE 80; RESP 15; O2SAT 100
[2023-03-17] MEDS: HEPARIN SODIUM LOCK FLUSH 500 UNITS/5 ML SYRINGE IV PUSH (01:54)
[2023-03-17 02:00] VITALS: BP 110/61; PULSE 83; RESP 16; TEMP 36.6; O2SAT 94
== END 2023-03-17 02:01 | disposition home or self-care (01) ==
PROVIDERS: Emergency Provider Emergency Medicine; PCP Family Medicine
DX: C21.0 Malignant neoplasm of anus, unspecified (principal); R10.2 Pelvic and perineal pain; F17.210 Nicotine dependence, cigarettes, uncomplicated; J45.909 Unspecified asthma, uncomplicated
CPT/HCPCS: 36415; 80053; 81003; 83690; 85025; 96374; 99284; J1170

== ENCOUNTER 2023-03-17 14:07 | Inpatient (IN) | payer MEDICARE, MEDICAID, SELFPAY ==
[2023-03-17] VITALS (33 sets, daily range): BP systolic 97–135; BP diastolic 53–78; PULSE 61–93; RESP 11–22; TEMP 36.6–36.9; O2SAT 93–99; BMI 16.1
--- NOTE | 2023-03-17 14:34 | PC.NURSE ---
Bladderscan >998, May TUBE BLOWER notified, VO initiate Breaux catheter
--- NOTE | 2023-03-17 14:44 | ED.GENADULT ---
HPI - General Adult General Chief complaint: Urogenital-Female Stated complaint: inability to void Time Seen by Provider: 03/17/23 14:29 History of Present Illness HPI narrative: Lizzy Kilgore is a 63 y/o female with a past medical history of stage IV colon CA. She was here on 03/14 and was found to have increased size of necrotic rectal mass, hospice and admission was discussed with her but she declined. She presented last night for increased pelvic pain and reports she had urinary retention, she was straight cathed and again admission/ hospice was discussed and she declined. She returns today with complaints of not being able to urinate since she was straight cathed here and having more pain. Her bladder scan here was about 1000mls, she is now wanting to be admitted for her symptoms and be evaluated for hospice. Related Data Home Medications Medication Instructions Recorded Confirmed gabapentin 800 mg tablet 800 mg PO DAILY 09/17/19 03/02/23 albuterol sulfate 90 mcg/actuation 90 inh inhalation Q4-6H PRN 04/13/20 03/02/23 aerosol inhaler Shortness Of Breath aspirin 81 mg tablet,delayed 81 mg PO DAILY 04/13/20 03/02/23 release levothyroxine 75 mcg tablet 75 mcg PO QAM 04/13/20 03/02/23 (Euthyrox) pramipexole 0.125 mg tablet 0.125 mg PO QPM 04/13/20 03/02/23 (Mirapex) naloxone 4 mg/actuation nasal spray 4 mg intranasal Q2-3M PRN 01/19/21 03/02/23 Respiratory Distress Allergies Allergy/AdvReac Type Severity Reaction Status Date / Time codeine Allergy Unknown Depression Verified 03/17/23 14:26 poison allyson extract Allergy Unknown RASH Verified 03/17/23 14:26 SWELLING BEES Allergy Unknown SWELLING, Uncoded 03/17/23 14:26 PASS OUT Review of Systems Review of Systems: CONSTITUTIONAL: Denies fever, chills, or sweats. EYES: Denies visual changes, redness, or discharge. ENT: Denies rhinorrhea, congestion, sore throat, or otalgia. CARDIOVASCULAR: Denies chest pain, palpitations, or edema. RESPIRATORY: Denies cough or dyspnea. GASTROINTESTINAL: Reports abdominal pain/pelvic pain related to her CA. GENITOURINARY: Reports urinary retention SKIN: Denies rash or itching. MUSCULOSKELETAL: Denies back pain, joint pain, or myalgia. NEUROLOGIC: Denies headache, numbness, dizziness, or weakness. PSYCHIATRIC: Denies anxiety or depression. [facility] Past Medical History Medical History (Updated 03/17/23 @ 17:20 by Coreen Huang APRN) Anal squamous cell carcinoma Asthma COPD (chronic obstructive pulmonary disease) Surgical History Surgical History History of appendectomy 1970 History of umbilical hernia repair with mesh in 1989 Family History Family History Father Hypertension Mother Family history of malignant neoplasm Sibling Family history of diabetes mellitus in first degree relative Family history of heart disease in male family member before age 55 Other Diabetes mellitus Family history of allergic disorder Family history of arthritis Social History Social History Smoking packs per day: 1 Smoking cigarettes per day: 20.0 Smoking status: Current every day smoker Second hand tobacco smoke exposure: Yes Alcohol intake: never Gender identity (if verbalized by the patient): Female Spiritual care concerns: No Exam Narrative: GENERAL:Appears chronically unwell. no acute distress HEAD: Normocephalic, atraumatic. EYES: PERRLA and EOMI. ENT: Nares clear, no rhinorrhea or epistaxis. Dry mucous membranes NECK: Supple. No adenopathy or masses. CHEST: Clear to auscultation. No respiratory distress. No wheezes rales or rhonchi HEART: Regular rate and rhythm. No murmur heard. Normal peripheral pulses. ABDOMEN: , nondistended, bowel sounds present, ostomy in place and stool output brown, stoma appears pink EXTREMITIES:
[2023-03-17 15:26] LABS: Basophils Percent Auto 0.2 % (0.2-1.2); Eosinophils Percent Auto 0.1 % (0-4.4); Hemoglobin 10.6 g/dL (12.0-15.0); Immature Granulocyte Absolute 0.06 K/mm3 (0.00-0.031); Immature Granulocyte Percent A 0.5 % (0-0.5); Lymphocytes Absolute Auto 0.67 K/mm3 (0.9-3.2); Lymphocytes Percent Auto 5.4 % (18.3-44.2); Mean Corpuscular HGB Conc 32.1 g/dl (32-36); Mean Corpuscular Hemoglobin 26.8 pg (26-34); Mean Corpuscular Volume 83.3 fl (80-100); Mean Platelet Volume 7.7 fl (7.4-10.4); Monocytes Absolute Auto 0.7 K/mm3 (0.1-0.6); Monocytes Percent Auto 5.3 % (2.6-8.5); Neutrophils Percent Auto 88.5 % (45.5-73.1); Platelet Count Result 377 k/mm3 (150-375); Red Blood Count 3.96 M/mm3 (4.2-5.4); Red Cell Distribution Width 17.8 % (11.5-14.5); White Blood Count 12.4 K/mm3 (4.5-10.0)
[2023-03-17] MEDS: fentaNYL CITRATE INJ (*CRX) 100 MCG/2 ML VIAL 25 MCG IV PUSH (15:28)
[2023-03-17] MEDS: SODIUM CHLORIDE 0.9% IV 1,000 ML 150 ML IV CONT (15:28)
--- NOTE | 2023-03-17 15:32 | PC.NURSE ---
Pt has hx of stage 4 colon cancer. States this has been an ongoing problem. Has pain in her suprapubic area. Was seen at the ER last night and told the bladder was full. Pt states she was straight cath and then went home. Upon arrival pt had 1000mls of urine via bladder scanner.
[2023-03-17 15:44] LABS: Alanine Aminotransferase 16 U/L (6-35); Albumin Level 3.3 g/dL (3.5-5.1); Alkaline Phosphatase 101 U/L (38-126); Anion Gap 2 mmol/L (8-16); Aspartate Amino Transferase 25 U/L (14-36); Bilirubin,Total 0.4 mg/dL (0.2-1.3); Blood Urea Nitrogen 25 mg/dL (7-17); Calcium 8.5 mg/dL (8.4-10.2); Carbon Dioxide 28 mmol/L (22-30); Chloride 100 mmol/L (98-107); Estimated CRCL calculation 62 ml/min; Estimated Glomerular Filt Rate > 60; Glucose 115 mg/dL (65-110); Sodium 130 mmol/L (137-145)
[2023-03-17 17:23] LABS: Appearance Urine Clear (Clear); Bacteria Urine None Seen /hpf; Bilirubin Urine Negative (Negative); Blood Urine 2+ (Negative); Color Urine Yellow (Yellow); Glucose Urine UA Negative (Negative); Hyaline Casts Urine Present /lpf; Ketones Urine Trace mg/dL (Negative); Leukocyte Esterase Ur Trace LEU/UL (Negative); Nitrate Urine Negative (Negative); Protein Urine 2+ mg/dL (Negative); RBC Urine 21-50 /hpf (0-2); Specific Grav Ur 1.022 (1.001-1.035); Squamous Epithelial Cell Urine Occasional /hpf (Few); Urobilinogen Urine 0.2 mg/dL (<2.0); WBC Urine 0-5 /hpf; pH Urine 6.5 (5.0-9.0)
[2023-03-17 17:24] LABS: Add Urine Microscopic? YES
--- NOTE | 2023-03-17 18:51 | ADMGEN ---
This patient, Lizzy Kilgore, was admitted to 2 Medical Room 259-. Patient/family oriented to hospital policies and general routines including ID bracelet, bed and alarms, visiting hours, pain management, procedures, bathroom and other care routines, personal items, smoking policy, room service/diet, and visiting hours. Information on how to activate the Rapid Response Team has been discussed. Patient/Family are encouraged to report perceived risks to care and to ask questions if they do not understand what they are told or what they should do.
--- NOTE | 2023-03-17 19:15 | PM.IMHP ---
H&P: HPI History of Present Illness Date/Time: 03/17/23 19:15 Chief Complaint: Inability to avoid Narrative: this is a 63-year-old female patient who has stage IV colon cancer Who is managed by Dr. Bey. The patient reports that she is still receiving chemotherapy but has completed radiation.The patient was last seen here in the emergency room on 03/14/2023 where she felt that she had some vaginal discharge. The patient was started on Cipro and Flagyl at that time. The patient had abdominal CT scan that showed a slight increase in size of the necrotic mass in the rectum abutting the uterus and vagina. Dr. bey had been notified at that time. The patient did not want to stay in the hospital or go to hospice at that time. She also declined a transfer at that time. Today the patient returned back to the hospital where she had increased pelvic pain and urinary retention. The patient was then asked about hospice again in the patient declined the patient stated that she wants to talk to Dr. Bey prior to making that decision to go to hospice. The patient was unable to urinate so Breaux catheter was placed and she had tea-colored urine. The patient is having more pain than what she can handle at home. I had a discussed and that hospice is at me that she is going to soon but rather hospice is there to help with the pain control. The patient has a terminal illness I most likely will qualify for hospice. The patient stated that she wanted to talk to her oncologist prior to going to hospice. I explained to her that because she goes on hospice is not necessarily mean that she has to stay on hospice. If in the event that she is getting better she may be taken off of hospice however it is there for pain management. We had a discussion about pain management. The patient is emaciated and stated that she does smoke marijuana to help with the pain. She is very frail and states that she has no appetite. She does take boost from time to time. Her white count is elevated 12.4. H&H is 10.6 and 33.0. Platelets 377. Her sodium is 130 with her previous level 132. The patient was noted to have trace ketones 2+ blood trace leukocyte esterase and rbc's of 21-50. The patient was given Rocephin and fentanyl and normal saline in the emergency room. The patient is being admitted to inpatient status on the date of service of 03/17/2023. Review of Systems Review of Systems: All systems reviewed & are unremarkable except as noted in HPI and below Constitutional: Constitutional: Reports as per HPI and Reports no additional constitutional complaints Eyes: Eyes: Reports as per HPI and Reports no additional eye complaints ENT: Reports system reviewed and no additional complaints, except as documented and Reports Normal hearing present Cardiovascular: Cardiovascular: Reports no additional cardiovascular complaints Respiratory: Respiratory: Reports no additional respiratory complaints and Reports no additional respiratory complaints Gastrointestinal: Gastrointestinal: Reports as per HPI and Reports no additional gastrointestinal complaints Musculoskeletal: Musculoskeletal: Reports no additional musculoskeletal complaints Integumentary/Breasts: Skin/Breast: Reports system reviewed and no additional complaints, except as docu and Reports as per HPI Neurologic: Reports system reviewed and no additional complaints, except as documented, Reports as per HPI and Reports Normal hearing present Psychiatric: Psychiatric: Reports no additional psychiatric complaints and Reports as per HPI Endocrine: Endocrine: Reports no additional endocrine complaints Hematologic/Lymphatic: Hematologic/Lymphatic: Reports no additional hematologic/lymphatic complaints Allergic/Immunologic: Allergic/Immunologic: Reports no additional allergic/immunologic complaints [facility] Past Medical History Medical History (Updated 03/17/23 @ 22:37 by Carissa Garcia NP) Anal squa
[2023-03-17] MEDS: fentaNYL (*CRX) 25 MCG PATCH TRANSDERM (20:32)
[2023-03-17] MEDS: HYDROcodone/acetaminophen (*CRX) 10-325 MG TABLET 1 TAB PO (20:32)
[2023-03-17] MEDS: PRAMIPEXOLE 0.125 MG TABLET PO (21:38)
[2023-03-17] MEDS: GABAPENTIN 300 MG CAPSULE PO ×2 (21:38→22:12)
[2023-03-17] MEDS: MIRTAZAPINE 15 MG TABLET PO (21:38)
[2023-03-17] MEDS: SODIUM CHLORIDE 0.9% IV 250 ML 100 ML IV CONT (22:33)
[2023-03-18] VITALS (12 sets, daily range): BP systolic 105–127; BP diastolic 56–69; PULSE 60–94; RESP 15–18; TEMP 36.4–37.2; O2SAT 93–96
[2023-03-18] MEDS: CENTRAL LINE FLUSH 10 ML IV PUSH ×3 (05:52→21:05)
[2023-03-18] MEDS: LEVOTHYROXINE SODIUM 75 MCG TABLET PO (06:01)
[2023-03-18] MEDS: LEVOTHYROXINE SODIUM 100 MCG TABLET PO (06:01)
[2023-03-18 06:13] LABS: Basophils Percent Auto 0.1 % (0.2-1.2); Eosinophils Percent Auto 0.2 % (0-4.4); Hematocrit 33.5 % (37.0-47.0); Hemoglobin 10.7 g/dL (12.0-15.0); Immature Granulocyte Absolute 0.05 K/mm3 (0.00-0.031); Immature Granulocyte Percent A 0.6 % (0-0.5); Lymphocytes Absolute Auto 0.83 K/mm3 (0.9-3.2); Lymphocytes Percent Auto 10.3 % (18.3-44.2); Mean Corpuscular HGB Conc 31.9 g/dl (32-36); Mean Corpuscular Hemoglobin 26.8 pg (26-34); Mean Platelet Volume 7.5 fl (7.4-10.4); Monocytes Absolute Auto 0.7 K/mm3 (0.1-0.6); Monocytes Percent Auto 8.3 % (2.6-8.5); Neutrophils Absolute Auto 6.5 K/mm3 (1.3-6.7); Neutrophils Percent Auto 80.5 % (45.5-73.1); Platelet Count Result 349 k/mm3 (150-375); Red Blood Count 3.99 M/mm3 (4.2-5.4); Red Cell Distribution Width 17.9 % (11.5-14.5); White Blood Count 8.1 K/mm3 (4.5-10.0)
[2023-03-18 06:23] LABS: Lactic Acid Reflex 0.8 mmol/L (0.7-2.0); Magnesium 1.7 mg/dL (1.6-2.3)
[2023-03-18] MEDS: ASPIRIN 81 MG ENTERIC TABLET PO (08:31)
[2023-03-18] MEDS: busPIRone HCL 5 MG TABLET PO ×2 (08:31→17:52)
[2023-03-18] MEDS: FLUTICASONE/SALMETEROL 115-21 MCG INHALER 1 PUFF 2 PUFF INHALATION ×2 (08:52→20:25)
[2023-03-18] MEDS: TAMSULOSIN HCL 0.4 MG CAPSULE PO (09:07)
[2023-03-18 09:36] LABS: Free T4 Free Thyroxine Reflex 0.41 ng/dL (0.78-2.19)
[2023-03-18] MEDS: HYDROcodone/acetaminophen (*CRX) 10-325 MG TABLET 1 TAB PO (10:55)
--- NOTE | 2023-03-18 13:47 | PM.IMPN ---
Progress Note: A&P Assessment and Plan (1) Pelvic pain: Code(s): R10.2 - Pelvic and perineal pain Status: Acute Assessment and Plan: Mixture of visceral and neuropathic pain due to metastatic squamous cell CA of anus 03/18/2023 Added methadone 2.5 mg PO q 8 hrs with plan to titrate every 5-7 days 03/18/2023 Switched from hydrocodone to morphine 10 mg SL q 4 hrs prn 03/18/2023 Increased gabapentin from 600mg at hs to 300 mg in AM and 600 mg at hs 03/18/2023 Added dexamethasone 4mg daily 03/18/2023 Discussed treatment and prognosis with patient and son at bedside and with Dr. Bey by phone and all agree that hospice consultation would be appropriate. Patient and son would like to speak with [facility] (after being informed that there are multiple local hospice companies). (2) Acute urinary retention: Code(s): R33.8 - Other retention of urine Status: Acute Assessment and Plan: Likely related to narcotics, invasion of pelvic nerves by tumor Will need to go home with Breaux (3) Anal squamous cell carcinoma: Code(s): C21.0 - Malignant neoplasm of anus, unspecified Status: Acute Assessment and Plan: Poorly differentiated with poor resonse to chemotherapy (4) Kidney mass: Code(s): N28.89 - Other specified disorders of kidney and ureter Status: Inactive Assessment and Plan: Right renal mass 1.7 cm is likely renal cell CA (5) COPD (chronic obstructive pulmonary disease): Qualifiers: COPD type: unspecified COPD Qualified Code(s): J44.9 - Chronic obstructive pulmonary disease, unspecified Code(s): J44.9 - Chronic obstructive pulmonary disease, unspecified Status: Acute Assessment and Plan: Continue fluticasone-salmeterol, albuterol inhalers Subjective Date/time seen: 03/18/23 13:47 Interval history: 63-year-old female with 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 Pain has improved since insertion of urinary catheter. However it is still severe requiring p.o. narcotics every 4 hours. She describes it as burning pain that spreads from the vaginal area through the perineum into the anus and up into the pelvis and lower abdomen. She is currently taking about 75 MME per day with no extended release medications. She also takes gabapentin 600 mg at HS. Sleep is poor. Appetite is poor. She has last about 11 pounds in the past 6 months and about 61 pounds since her cancer diagnosis. She is drowsy most of the time but sleeps poorly. She admits to taking her levothyroxine off and on. Her CA was dianosed in 2018 and treated with radiation completed 01/01/19 and chemotherapy followed by A-P resection 07/16/2020. Since then she has had multiple trials of various chemotherapies without significant tumor response. Exam Narrative: GEN: Elderly chronically ill-appearing female who appears much older than her stated age. HEENT: PERRL, sclerae nonicteric, pharyngeal mucosa pink and intact NECK: No JVD, adenopathy, or thyromegaly CHEST: Coarse breath sounds with expiratory rhonchi in both lower lobe. Normal effort. HEART: NL S1/S2, regular, no murmur ABDOMEN: BS+, soft, nontender, no mass, no bruits EXTREMITIES: No cyanosis, edema, or clubbing NEUROLOGIC: CN intact and symmetric to inspection. MUSCULOSKELETAL: Tone and strength symmetric. PSYCH: Alert. Oriented to person, place, and time. Objective Data Vital Signs Vital Signs: Vital Signs - 24 hr 03/17/23 14:22 03/17/23 14:57 03/17/23 15:00 Temperature 97.8 F Pulse Rate 93 75 91 Respiratory Rate 18 17 22 H Blood Pressure 97/53 L Pulse Oximetry 97 97 97 Oxygen Delivery 03/17/23 15:03 03/17/23 15:15 03/17/23 15:16 Temperature Pulse Rate 77 79 77 Respiratory Rate 16 18 17 Blood Pressure 105/63 121/66 Pulse Oximetry 98 96 97
[2023-03-18] MEDS: methADONE HCL (*CRX) 2.5 MG TABLET PO ×2 (14:48→21:02)
[2023-03-18] MEDS: DEXAMETHASONE SOD PHOS INJ 4 MG/ML VIAL IV PUSH (15:16)
[2023-03-18] MEDS: MORPHINE SULFATE ORAL CONC SOL (*CRX) 10 MG/0.5 ML SYRINGE PO ×2 (17:54→21:55)
[2023-03-18] MEDS: GABAPENTIN 300 MG CAPSULE 600 MG PO (21:02)
[2023-03-18] MEDS: PRAMIPEXOLE 0.125 MG TABLET PO (21:02)
[2023-03-18] MEDS: MIRTAZAPINE 15 MG TABLET PO (21:02)
[2023-03-19] MEDS: MORPHINE SULFATE ORAL CONC SOL (*CRX) 10 MG/0.5 ML SYRINGE PO ×3 (01:58→10:33)
[2023-03-19 02:00] VITALS: BP 129/67; PULSE 64; RESP 18; TEMP 36.8; O2SAT 100
[2023-03-19] MEDS: methADONE HCL (*CRX) 2.5 MG TABLET PO (05:00)
[2023-03-19] MEDS: CENTRAL LINE FLUSH 10 ML IV PUSH (05:01)
[2023-03-19 05:50] VITALS: BP 96/56; PULSE 73; RESP 18; TEMP 36.5; O2SAT 96
[2023-03-19] MEDS: LEVOTHYROXINE SODIUM 100 MCG TABLET PO (06:04)
[2023-03-19] MEDS: LEVOTHYROXINE SODIUM 75 MCG TABLET PO (06:04)
[2023-03-19] MEDS: busPIRone HCL 5 MG TABLET PO (08:13)
[2023-03-19] MEDS: TAMSULOSIN HCL 0.4 MG CAPSULE PO (08:13)
[2023-03-19] MEDS: GABAPENTIN 300 MG CAPSULE PO (08:13)
[2023-03-19] MEDS: DEXAMETHASONE 4 MG TABLET PO (08:13)
[2023-03-19] MEDS: FLUTICASONE/SALMETEROL 115-21 MCG INHALER 1 PUFF 2 PUFF INHALATION (08:29)
[2023-03-19 08:32] VITALS: O2SAT 93
--- NOTE | 2023-03-19 09:23 | PC.NURSE ---
Spoke to Alejandra with [facility] hospice about patient's interest in hospice services. At this time, patient would like more information on hospice. Jamila notified and a visit is planned.
--- NOTE | 2023-03-19 11:34 | PM.DS ---
DS: Admitting Diagnosis Discharge Date 03/19/2023 Admitting Diagnosis Pelvic pain DS: Discharge Diagnosis Discharge Diagnosis (1) Pelvic pain: Code(s): R10.2 - Pelvic and perineal pain Status: Acute Assessment and Plan: Mixture of visceral and neuropathic pain due to metastatic squamous cell CA of anus Analgesics provided during admission with adequate pain control 03/18/2023 patient requested hospice consultation 03/19/2023 patient discharged with hospice Further analgesics defer to hospice team (2) Acute urinary retention: Code(s): R33.8 - Other retention of urine Status: Acute Assessment and Plan: Likely related to narcotics, invasion of pelvic nerves by tumor Discharged home with Breaux catheter (3) Anal squamous cell carcinoma: Code(s): C21.0 - Malignant neoplasm of anus, unspecified Status: Acute Assessment and Plan: Poorly differentiated with poor resonse to chemotherapy Signed with [facility] on 03/19/2023 (4) Kidney mass: Code(s): N28.89 - Other specified disorders of kidney and ureter Status: Inactive Assessment and Plan: Right renal mass 1.7 cm is likely renal cell CA (5) COPD (chronic obstructive pulmonary disease): Qualifiers: COPD type: unspecified COPD Qualified Code(s): J44.9 - Chronic obstructive pulmonary disease, unspecified Code(s): J44.9 - Chronic obstructive pulmonary disease, unspecified Status: Acute Assessment and Plan: Continue fluticasone-salmeterol, albuterol inhalers DS: Summary Hospital Course Hospital Course: Date of admission: 03/17/2023 Date of discharge: 03/19/2023 Lizzy Kilgore is a 63 year old female with a history of anal squamous cell carcinoma, asthma, COPD, hypothyroidism who presented to the emergency department on 03/17/2023 with urinary retention. She had been in the ED earlier in the day with inadequate pain control, requesting hospice evaluation. Admission was offered, however patient returned home and presented later in the day due to urinary retention. She was admitted to the hospitalist service for further evaluation and management. Please see above for further details. Breaux catheter initiated and patient will continue on discharge. Patient met with hospice on 03/19/2023 and signed consents. Discharged with home hospice. Equipment being delivered. Patient and family agreeable with discharge plans Time Spent with Patient Time attestation: Total time spent providing and/or coordinating discharge services: Exam Narrative: GEN: Elderly chronically ill-appearing female who appears much older than her stated age. HEENT: PERRL, sclerae nonicteric, normocephalic, atraumatic CHEST: Coarse breath sounds. Normal effort. HEART: Regular rate, regular rhythm ABDOMEN: BS+, soft, nontender EXTREMITIES: No cyanosis, edema, or clubbing NEUROLOGIC: Awake, alert, answers questions appropriately, no focal neurologic deficits. PSYCH: Appropriate mood and affect DS: Data Data Completed and Pending Labs on day of discharge: Preliminary micro results at discharge 03/17/23 23:43 Blood Culture - Preliminary Blood 03/17/23 23:43 Blood Culture - Preliminary Blood Discharge Plan Discharge Attending physician on discharge: Terry Almaraz Consulting providers: Lucas Bey; Tank Coe Discharging Clinician: Yany Torres Patient Disposition: Hospice - Home Activity: as tolerated Diet: regular Discharge Instructions: All further care and medication changes per hospice Continue Breaux catheter Patient Instructions: Antibiotic Form, Breaux Catheter Placement and Care (DC) Stand Alone Forms: General Discharge Information Follow-up/Referrals: Leopoldo Glaser MD [Primary Care Provider] - Discharge Medications: Continued naloxone 4 mg/actuation [place],Non-Aerosol 4 mg
--- NOTE | 2023-03-19 12:42 | WPDURCON ---
Assessment and Plan Assessment and plan (1) Rectal mass: Code(s): K62.89 - Other specified diseases of anus and rectum Status: Acute Assessment and Plan: Likely contributing to retention by placing extrinsic pressure and not allowing for urination. Patient will keep ramon in place, and have monthly catheter changes by hospice nursing indefinitely. She has no concerns with the ramon match marker. No further evaluation neccessary. (2) Acute urinary retention: Code(s): R33.8 - Other retention of urine Status: Acute Urology Consult Note HPI Date Seen: 03/19/23 Time Seen: 12:43 Requesting Physician: Yany Torres PA-C Primary Care Provider: Leopoldo Glaser MD Consult Narrative Reason for consult: Retention of Urine Narrative: Lizzy Kilgore is a 63 year old female who presented to the ER on 03/17/23 with urinary retention, history of stage IV colon cancer and necrotic rectal mass. She had >1000cc of urine after ramon insertion. She states this is a new problem for her and she has not struggled with urination in the past. She denies hematuria, dysuria, frequency or urgency prior to this. Her CT scan on 03/14/23 shows a slight increase in size of a necrotic mass of the rectum abutting the uterus and vagina. Direct invasion is not definitely confirmed or excluded and a stable right kidney mass, likely renal cell carcinoma. Urine culture on 03/18/23 is negative. She has been discharged home with hospice at this time and will be leaving soon. We were asked to evaluate her retention. Review of Systems Cardiovascular: Cardiovascular: Denies chest pain at rest Respiratory: Respiratory: Reports no additional respiratory complaints Gastrointestinal: Gastrointestinal: Denies abdominal pain, Denies nausea and Denies vomiting Genitourinary: Genitourinary: Denies hematuria, Denies dysuria, Denies pelvic pain, Reports urinary hesitancy and Denies urinary urgency [facility] Past Medical History Medical History Anal squamous cell carcinoma Asthma COPD (chronic obstructive pulmonary disease) Hypothyroidism Port-A-Cath in place Surgical History Surgical History Colostomy status H/O tubal ligation History of appendectomy 1970 History of colectomy History of umbilical hernia repair with mesh in 1989 Family History Family History Father Hypertension Mother Family history of malignant neoplasm Sibling Family history of diabetes mellitus in first degree relative Family history of heart disease in male family member before age 55 Other Diabetes mellitus Family history of allergic disorder Family history of arthritis Social History Social History Social History: the patient has a fiancee. She has 2 children. She lives with her son. She is down to smoking approximately 4 cigarettes a day. No alcohol but does smoke marijuana. She does not have a durable power employee benefits attorney for healthcare but is considering her sister. she worked up until she was diagnosed with her cancer and is now on disability. Code status full code Smoking packs per day: 1 Smoking cigarettes per day: 20.0 Years smoked: 48 Smoking pack-years: 48.00 Smoking status: Current every day smoker Second hand tobacco smoke exposure: Yes Alcohol intake: never Substance use: never Lack of Transportation: No Lack of Food: Never True Current Housing: I Have Housing Concerned About Future Housing: No Difficulty Paying Gas/Electric Bills: No Difficulty Paying for Meds: No Currently Unemployed: No Education: Grade School Difficulty w/ Childcare or Family Care: No Gender identity (if verbalized by the patient): Female Spiritual care concerns: No Meds Home Medicatio
== END 2023-03-19 12:40 | disposition hospice, home (50) | DRG 375 ==
LOC: ANHED 14:43 → ANH2MED 18:09
PROVIDERS: Nurse Practitioner; Admitting Provider Hospitalist; Emergency Provider Nurse Practitioner Family; PCP Family Medicine; Visit Provider Physician Assistant
DX: C21.0 Malignant neoplasm of anus, unspecified (principal); Z68.1 Body mass index [BMI] 19.9 or less, adult; R33.8 Other retention of urine; R10.2 Pelvic and perineal pain; N28.89 Other specified disorders of kidney and ureter; R33.0 Drug induced retention of urine; T40.605A Adverse effect of unspecified narcotics, initial encounter; J44.9 Chronic obstructive pulmonary disease, unspecified; F17.210 Nicotine dependence, cigarettes, uncomplicated; R62.7 Adult failure to thrive; E03.9 Hypothyroidism, unspecified; Z93.3 Colostomy status; Z90.49 Acquired absence of other specified parts of digestive tract; Z79.82 Long term (current) use of aspirin
CPT/HCPCS: 36415; 74177; 80053; 81001; 81003; 83605; 83690; 83735; 84439; 84443; 85025; 85610; 85730; 86850; 86900; 86901; 87040; 87086; 94640; 96361; 96374; 99284; 99285; A9270; J0696; J1100; J1170; J1642; J3010; J7030; J7050; J8540; Q9967